=== PATIENT | male | born 1960 | race Caucasian/White ===

== ENCOUNTER → 2016-04-14 | Outpatient (CLI) | payer BC ==
[~2016-04-14] MED LIST: INSUINJ4 SQ; LISI2.5T5 PO
[2016-04-14 10:21] LABS: ESTIMATED AVERAGE GLUCOSE 134 mg/dl; HA1C FLAG Normal (Normal)
[2016-04-14 11:35] LABS: ALT/SGPT 144 U/L (12-78); AST/SGOT 61 U/L (15-37); BLOOD UREA NITROGEN 18 mg/dl (7-18); BUN/CREATININE RATIO 20.1 (10-20); CALCIUM 9.2 mg/dl (8.5-10.1); CARBON DIOXIDE 25 mmol/L (21-32); CHLORIDE 107 mmol/L (98-107); GLUCOSE 147 mg/dl (70-99); POTASSIUM 3.7 mmol/L (3.5-5.1); SODIUM 142 mmol/L (136-145)
[2016-04-14 11:41] LABS: ALB/GLOB RATIO 1.2 (0.9-2); ALKALINE PHOSPHATASE 52 U/L (45-117); CHOLESTEROL 202 mg/dl (0-200); CHOLESTEROL/HDL RATIO 4.1; HDL CHOLESTEROL 49 mg/dl; LDL CHOLESTEROL CALCULATED 111 mg/dl; TRIGLYCERIDES 212 mg/dl (0-150); VERY LOW DENSITY LIPOPROT CALC 42 mg/dl
== END | disposition home or self-care (01) ==
LOC: C.LAB1850 07:50
PROVIDERS: ATTEND Internal Medicine
DX: E11.9 Type 2 diabetes mellitus without complications (principal)

== ENCOUNTER → 2016-09-24 | Outpatient (CLI) | payer BC ==
[2016-09-24 10:06] LABS: ESTIMATED AVERAGE GLUCOSE 166 mg/dl; HA1C FLAG Normal (Normal)
[2016-09-24 10:33] LABS: HEPATITIS B AB NEG
[2016-09-24 10:49] LABS: ALT/SGPT 166 U/L (12-78); AST/SGOT 101 U/L (15-37); BLOOD UREA NITROGEN 16 mg/dl (7-18); CALCIUM 9.2 mg/dl (8.5-10.1); CARBON DIOXIDE 23 mmol/L (21-32); CHLORIDE 106 mmol/L (98-107); CREATININE 0.75 mg/dl (0.60-1.40); GLUCOSE 167 mg/dl (70-99); POTASSIUM 4.2 mmol/L (3.5-5.1); SODIUM 140 mmol/L (136-145)
[2016-09-24 10:54] LABS: ALKALINE PHOSPHATASE 57 U/L (45-117); PROSTATE SPECIFIC ANTIGEN 0.353 ng/ml (0.000-4.000)
[2016-09-24 11:26] LABS: RATIO 7.2 mcg/mg (0-30.0)
== END | disposition home or self-care (01) ==
LOC: C.LAB1850 07:52
PROVIDERS: ATTEND Internal Medicine
DX: R79.89 Other specified abnormal findings of blood chemistry (principal); E11.9 Type 2 diabetes mellitus without complications; Z12.5 Encounter for screening for malignant neoplasm of prostate

== ENCOUNTER → 2016-12-02 | Outpatient (CLI) | payer BC ==
--- NOTE | 2016-12-02 08:43 | DIAGNOSTIC IMAGING REPORT ---
MRI LUMBAR SPINE W/O CONTRAST CLINICAL HISTORY: Gait disturbance. Disc bulge. Low back pain with right leg radiculopathy. TECHNIQUE: Sagittal and axial T1, T2 and STIR images were obtained. COMPARISON STUDY: 10/13/2008 OBSERVATIONS: The vertebral bodies and posterior elements appear intact. There is no abnormal bony signal present to suggest a marrow replacement process. L1-2: No disc protrusions or extrusions. No evidence of spinal canal or neural foraminal compromise. L2-3: No disc protrusions or extrusions. No evidence of spinal canal or neural foraminal compromise. L3-4: No disc protrusions or extrusions. No evidence of spinal canal or neural foraminal compromise. L4-5: There is a minimal circumferential disc bulge. There is no significant spinal or foraminal stenosis. L5-S1: There is a moderate to large right-sided disc extrusion. The disc material extends into the right lateral recess and abuts and displaces the right S1 nerve root. The conus medullaris and cauda equina appear normal. IMPRESSION: Interval development of a moderate to large right-sided disc extrusion at the L5-S1 level. The disc material abuts and displaces the right S1 nerve root. Electronically signed by: Bienvenido Mosher M.D. 12/02/2016 8:41 AM Dictated Date/Time: 12/02/2016 8:38 AM
== END | disposition home or self-care (01) ==
LOC: C.MRI 07:43
PROVIDERS: ATTEND Internal Medicine
DX: M51.26 Other intervertebral disc displacement, lumbar region (principal); M54.41 Lumbago with sciatica, right side; G47.9 Sleep disorder, unspecified; R26.9 Unspecified abnormalities of gait and mobility; R20.0 Anesthesia of skin; R93.7 Abnormal findings on diagnostic imaging of other parts of musculoskeletal system; M51.27 Other intervertebral disc displacement, lumbosacral region

== ENCOUNTER → 2017-06-22 | Outpatient (CLI) | payer BC ==
[~2017-06-22] MED LIST changes: +LISI-1116 PO; -LISI2.5T5 PO
[2017-06-22 10:01] LABS: HEMOGLOBIN A1C 9.7 % (4.5-5.6)
[2017-06-22 10:26] LABS: ALBUMIN 4.1 gm/dl (3.4-5.0); ALT/SGPT 174 U/L (12-78); AST/SGOT 133 U/L (15-37); BLOOD UREA NITROGEN 15 mg/dl (7-18); CALCIUM 9.4 mg/dl (8.5-10.1); CARBON DIOXIDE 23 mmol/L (21-32); CREATININE 0.91 mg/dl (0.60-1.40); GLUCOSE 255 mg/dl (70-99); POTASSIUM 3.9 mmol/L (3.5-5.1); SODIUM 136 mmol/L (136-145)
[2017-06-22 10:29] LABS: ALKALINE PHOSPHATASE 67 U/L (45-117); TOTAL PROTEIN 8.2 gm/dl (6.4-8.2)
== END | disposition home or self-care (01) ==
LOC: C.LAB1850 08:00
PROVIDERS: ATTEND Internal Medicine
DX: R79.89 Other specified abnormal findings of blood chemistry (principal); E11.9 Type 2 diabetes mellitus without complications

== ENCOUNTER 2021-11-06 15:28 | Inpatient (IN) ==
--- NOTE | 2021-11-06 16:12 | XRay Report ---
XR chest 1V portable HISTORY: Atypical Chest Pain COMPARISON: None. FINDINGS: The cardiac silhouette is mildly enlarged. The trachea is midline and patent. No pneumothor ax. No pleural effusions. There is mild diffuse interstitial thickening likely representing pulmonary edema. IMPRESSION: Cardiomegaly with mild interstitial pulmonary edema. ACT 112: Negative or not required by law. Electronically signed by: Kehinde Hernandez M.D. 11/06/2021 4:10 PM
[2021-11-06 16:28] LABS: Basophils # (auto) 0.05 K/uL (0-0.2); Eosinophils # (auto) 0.13 K/uL (0-0.50); Eosinophils % (auto) 2.6 %; Hematocrit (blood only) 34.6 % (40.1-51.0); Hemoglobin 11.6 g/dl (14.0-18.0); Immature Granulocytes # (auto) 0.01 K/uL (0.00-0.02); Immature Granulocytes % (auto) 0.2 %; Lymphocytes # (auto) 1.37 K/uL (1.2-3.4); Lymphocytes % (auto) 27.6 %; Mean Corpuscular Hemoglobin 32.1 pg (25.0-34.0); Mean Corpuscular Hgb Conc 33.5 g/dL (32.0-36.0); Mean Corpuscular Volume 95.8 fL (80.0-100.0); Mean Platelet Volume 10.7 fL (9.4-12.4); Monocytes # (auto) 0.75 K/uL (0.24-0.82); Monocytes % (auto) 15.1 %; Neutrophils # (auto) 2.66 K/uL (1.4-6.5); Neutrophils % (auto) 53.5 %; Platelet Count 138 K/uL (130-400); RDW Coefficient of Variation 14.6 % (11.5-14.5); RDW Standard Deviation 51.7 fL (36.4-46.3); Red Blood Count 3.61 M/uL (4.63-6.08); White Blood Count 4.97 K/ul (4.8-10.8)
[2021-11-06 16:42] LABS: INR 1.2 (0.9-1.1); Partial Thromboplastin Ratio 1.1; Partial Thromboplastin Time 28.9 Seconds (21.0-31.0)
[2021-11-06 16:54] LABS: Troponin I High Sensitivity 25.3 pg/ml (0-20)
--- NOTE | 2021-11-06 16:59 | Emergency Department Note ---
Impression & Plan Acute systolic CHF (congestive heart failure), DM type 2 (diabetes mellitus, type 2), HTN (hypertension) ED Provider Note Provider: Nitin Gonzalez MD DATE OF SERVICE: 11/06/2021 CHIEF COMPLAINT: Heart failure HISTORY OF PRESENT ILLNESS: Patient is a 61-year-old gentleman history of hypertension and diabetes referred today from [facility] cardiology office with new onset heart failure. Dr. Wyman reports that echo today showed a new EF of 20% with cardiomyopathy. Patient has been taking some Lasix. Has significant swelling predominantly abdomen but some in the legs. Worsened over the past 6 months shortness of breath. Cardiology wanted the patient to be admitted for diuresis and further care. Patient denies significant chest pain or falls. Denies nausea or vomiting. REVIEW OF SYSTEMS: A total of 10 review of systems was obtained and negative except as stated above in the HPI. PAST MEDICAL HISTORY: As noted above MEDICATIONS: Reviewed home medication list SOCIAL HISTORY: Smoker PHYSICAL EXAM: GENERAL: alert and oriented in no acute distress on stretcher Head: normocephalic and atraumatic EYES: No injection, discharge or icterus. NECK: Trachea midline. ENT: Mucous membranes pink and moist. LUNGS: Airway patent. No retractions. Breath sounds diminished in the bases HEART: Regular rate and rhythm. No chest wall tenderness ABDOMEN: Soft and non-tender, without guarding or rebound but moderately distended. SKIN: Acyanotic, warm, dry, without rashes EXTREMITIES: Without obvious deformity with 1-2+ lower extremity edema. NEUROLOGICAL: No focal deficits. No aphasia. No facial droop or slurred speech. EK bpm sinus tachycardia. No acute ST segment elevation noted with some lateral ST flattening. QTc 492. CONTINUOUS CARDIAC MONITORING: was ordered and showed a heart rate of 90s-100s bpm in NSR normal sinus rhythm Patient's laboratory studies and imaging reviewed. Differential includes Cardiac ischemia, aortic dissection, pulmonary embolism, pneumothorax, pneumonia, pericarditis, myocarditis, esophageal rupture, GERD, cholecystitis, pancreatitis, musculoskeletal, as well as other pathologies. IMPRESSION/MEDICAL DECISION MAKING: From cardiology office with echo showing reduced EF of 20% cardiomyopathy. Clinically appears fluid overloaded. Has been taking some Lasix every day. Chest x-ray with some mild pulmonary edema. Troponin minimally elevated. Denies chest pain at this time. Peers to again have new onset heart failure ca rdiology can follow work-up. Patient A bit winded with speech but not hypoxic. BNP significantly elevated. Doubt this represents PE or DVT at this time given the bilateral nature of the legs and the echo from earlier today by report of Dr. Lizama from cardiology. Patient agreeable for further care here and given some IV Lasix. DIAGNOSIS: Acute CHF, swelling DISPOSITION: Hospitalist will evaluate Patient was agreeable with this plan. Past Med/Surg History Medical History DM type 2 (diabetes mellitus, type 2) Fatty liver HTN (hypertension) Surgical History History of nasal septoplasty History of tonsillectomy Family History (Updated 11/06/21 @ 19:21 by BHAVANA Guy) Mother Diabetes Father Heart disease Social History (Updated 11/06/21 @ 19:21 by BHAVANA Guy) Smoking Status: Current every day smoker Tobacco Type: Cigarettes Cigarettes Per Day: 4; Second Hand Exposure: No; Do You Dip or Chew Tobacco: No; Tobacco Cessation Education Requested by Patient: Yes Hx Alcohol Use: Yes Alcohol type: wine Alcohol Intake Frequency: 4 or More x per/Week Hx Substance Use: No Preferred Language: French Beliefs That Will Affect Care: None Current Living Situation: Spouse Other Information That Helps Us Care for You: No Feels Safe at Home: Yes Safety Concerns: Feels Safe At This Time Assistive Devices: Glasses Allergies Allergies Allergy/AdvReac Type Severity Reaction Status Date / Time No Known Allergies Allergy Unverified 11/06/21 17:45 Home Meds Home Medications Medication Instructions Recorded Confirmed dulaglutide 0.75 mg/0.5 mL 0.75 mg subcut WK 11/06/21 11/06/21 subcutaneous pen injector (Trulicity) furosemide 20 mg tablet 20 mg PO BID 11/06/21 11/06/21 insulin glargine 100 unit/mL (3 22 units subcut QAM 11/06/21 11/06/21 mL) subcutaneous pen (Basaglar KwikPen U-100 Insulin) lisinopril 20 mg tablet 20 mg PO QAM 11/06/21 11/06/21 metformin 1,000 mg tablet 1,000 mg PO BIDM 11/06/21 11/06/21 multivitamin 1 tab PO DAILY 11/06/21 11/06/21 omega-3 fatty acids 1,000 mg PO DAILY 11/06/21 11/06/21 Results & Data (ED) Vital Signs Vital Signs - 24 hr 11/06/21 15:30 11/06/21 17:53 Temperature 36.8 C Temperature Source Temporal Artery Scan Pulse Rate 119 H Pulse Rate [Apical] 108 H Pulse Rhythm [Apical] Regular Pulse Strength [Apical] Normal Respiratory Rate 16 19 Respiratory Effort / Characteristics Non-Labored Spontaneous Non-Labored Respiratory Depth Normal Normal Respiratory Pattern Regular Regular Blood Pressure 120/83 Blood Pressure [Right Arm] 111/82 Blood Pressure Mean 95 Blood Pressure Mean [Right Arm] 91 Blood Pressure Position [Right Arm] Lying Pulse Oximetry 97 96 Oxygen Delivery Method Room Air Room Air Sepsis Recent Fever Within 48 Hours No Sepsis New/Unexplained Change in Mental Status N/A Sepsis Action Taken by Nursing No Action Required Laboratory Data Result diagrams: 11/06/21 16:14 11/06/21 16:14 Lab Results 11/06/21 11/06/21 11/06/21 Range/Units 16:14 16:14 16:14 WBC 4.97 (4.8-10.8) K/ul RBC 3.61 L (4.63-6.08) M/uL Hgb 11.6 L (14.0-18.0) g/dl Hct 34.6 L (40.1-51.0) % MCV 95.8 (80.0-100.0) fL MCH 32.1 (25.0-34.0) pg MCHC 33.5 (32.0-36.0) g/dL RDW Std Deviation 51.7 H (36.4-46.3) fL RDW Coeff of Carla 14.6 H (11.5-14.5) % Plt Count 138 (130-400) K/uL MPV 10.7 (9.4-12.4) fL Immature Gran % (Auto) 0.2 % Neut % (Auto) 53.5 % Lymph % (Auto) 27.6 % Morehouse % (Auto) 15.1 % Eos % (Auto) 2.6 % Baso % (Auto) 1.0 % Neut # (Auto) 2.66 (1.4-6.5) K/uL Lymph # (Auto) 1.37 (1.2-3.4) K/uL Morehouse # (Auto) 0.75 (0.24-0.82) K/uL Eos # (Auto) 0.13 (0-0.50) K/uL Baso # (Auto) 0.05 (0-0.2) K/uL Immature Gran # (Auto) 0.01 (0.00-0.02) K/uL PT 13.0 H (9.0-12.0) Seconds INR 1.2 H (0.9-1.1) APTT 28.9 (21.0-31.0) Seconds PTT Ratio 1.1 Sodium 135 L (136-145) mmol/L Potassium 3.4 L (3.5-5.1) mmol/L Chloride 100 (98-107) mmol/L Carbon Dioxide 24 (21-32) mmol/L Anion Gap 11 (3-11) BUN 28 H (6-23) mg/dl Creatinine 0.90 (0.6-1.4) mg/dl Est Cr Clr Drug Dosing 106.4 ml/min Est GFR ( Amer) 107.2 ml/min Est GFR (Non-Af Amer) 92.5 ml/min BUN/Creatinine Ratio 31.1 H (10-20) Glucose 83 (70-99(Fasting)) mg/dl POC Glucose (70-99) mg/dl Calcium 9.4 (8.5-10.1) mg/dl Magnesium 2.2 (1.7-2.4) mg/dl Total Bilirubin 1.7 H (0.2-1.0) mg/dl AST 49 H (13-39) U/L ALT 27 (7-52) U/L Alkaline Phosphatase 80 (34-104) U/L Troponin I High Sens 25.3 H (0-20) pg/ml B-Natriuretic Peptide (0-100) pg/ml Total Protein 7.5 (6.0-8.3) gm/dl Albumin 4.1 (3.4-5.0) gm/dl Globulin 3.4 (2.5-4.0) gm/dl Albumin/Globulin Ratio 1.2 (0.9-2) SARS-CoV-2, RNA, NAAT (NEGATIVE) 11/06/21 11/06/21 11/06/21 Range/Units 16:14 16:14 16:16 WBC (4.8-10.8) K/ul RBC (4.63-6.08) M/uL Hgb (14.0-18.0) g/dl Hct (40.1-51.0) % MCV (80.0-100.0) fL MCH (25.0-34.0) pg MCHC (32.0-36.0) g/dL RDW Std Deviation (36.4-46.3) fL RDW Coeff of Carla (11.5-14.5) % Plt Count (130-400) K/uL MPV (9.4-12.4) fL Immature Gran % (Auto) % Neut % (Auto) % Lymph % (Auto) % Morehouse % (Auto) % Eos % (Auto) % Baso % (Auto) % Neut # (Auto) (1.4-6.5) K/uL Lymph # (Auto) (1.2-3.4) K/uL Morehouse # (Auto) (0.24-0.82) K/uL Eos # (Auto) (0-0.50) K/uL Baso # (Auto) (0-0.2) K/uL Immature Gran # (Auto) (0.00-0.02) K/uL PT (9.0-12.0) Seconds INR (0.9-1.1) APTT (21.0-31.0) Seconds PTT Ratio Sodium (136-145) mmol/L Potassium (3.5-5.1) mmol/L Chloride (98-107) mmol/L Carbon Dioxide (21-32) mmol/L Anion Gap (3-11) BUN (6-23) mg/dl Creatinine (0.6-1.4) mg/dl Est Cr Clr Drug Dosing ml/min Est GFR ( Amer) ml/min Est GFR (Non-Af Amer) ml/min BUN/Creatinine Ratio (10-20) Glucose (70-99(Fasting)) mg/dl POC Glucose (70-99) mg/dl Calcium (8.5-10.1) mg/dl Magnesium Cancelled (1.7-2.4) mg/dl Total Bilirubin (0.2-1.0) mg/dl AST (13-39) U/L ALT (7-52) U/L Alkaline Phosphatase (34-104) U/L Troponin I High Sens (0-20) pg/ml B-Natriuretic Peptide 1155 H (0-100) pg/ml Total Protein (6.0-8.3) gm/dl Albumin (3.4-5.0) gm/dl Globulin (2.5-4.0) gm/dl Albumin/Globulin Ratio (0.9-2) SARS-CoV-2, RNA, NAAT NEGATIVE (NEGATIVE) 11/06/21 Range/Units 17:08 WBC (4.8-10.8) K/ul RBC (4.63-6.08) M/uL Hgb (14.0-18.0) g/dl Hct (40.1-51.0) % MCV (80.0-100.0) fL MCH (25.0-34.0) pg MCHC (32.0-36.0) g/dL RDW Std Deviation (36.4-46.3) fL RDW Coeff of Carla (11.5-14.5) % Plt Count (130-400) K/uL MPV (9.4-12.4) fL Immature Gran % (Auto) % Neut % (Auto) % Lymph % (Auto) % Morehouse % (Auto) % Eos % (Auto) % Baso % (Auto) % Neut # (Auto) (1.4-6.5) K/uL Lymph # (Auto) (1.2-3.4) K/uL Morehouse # (Auto) (0.24-0.82) K/uL Eos # (Auto) (0-0.50) K/uL Baso # (Auto) (0-0.2) K/uL Immature Gran # (Auto) (0.00-0.02) K/uL PT (9.0-12.0) Seconds INR (0.9-1.1) APTT (21.0-31.0) Seconds PTT Ratio Sodium (136-145) mmol/L Potassium (3.5-5.1) mmol/L Chloride (98-107) mmol/L Carbon Dioxide (21-32) mmol/L Anion Gap (3-11) BUN (6-23) mg/dl Creatinine (0.6-1.4) mg/dl Est Cr Clr Drug Dosing ml/min Est GFR ( Amer) ml/min Est GFR (Non-Af Amer) ml/min BUN/Creatinine Ratio (10-20) Glucose (70-99(Fasting)) mg/dl POC Glucose 92 (70-99) mg/dl Calcium (8.5-10.1) mg/dl Magnesium (1.7-2.4) mg/dl Total Bilirubin (0.2-1.0) mg/dl AST (13-39) U/L ALT (7-52) U/L Alkaline Phosphatase (34-104) U/L Troponin I High Sens (0-20) pg/ml B-Natriuretic Peptide (0-100) pg/ml Total Protein (6.0-8.3) gm/dl Albumin (3.4-5.0) gm/dl Globulin (2.5-4.0) gm/dl Albumin/Globulin Ratio (0.9-2) SARS-CoV-2, RNA, NAAT (NEGATIVE) Administered Medications Discontinued Medications Furosemide (Furosemide 40 Mg/4 Ml Vial) 40 mg IV ONE ONE Stop: 11/06/21 17:26 Last Admin: 11/06/21 17:55 Dose: 40 mg Documented By: [facility] Imaging Data Radiologist's Impression: Chest X-Ray 11/06/21 15:33 XR chest 1V portable HISTORY: Atypical Chest Pain COMPARISON: None. FINDINGS: The cardiac silhouette is mildly enlarged. The trachea is midline and patent. No pneumothorax. No pleural effusions. There is mild diffuse interstitial thickening likely representing pulmonary edema. IMPRESSION: Cardiomegaly with mild interstitial pulmonary edema. ACT 112: Negative or not required by law. Electronically signed by: Kehinde Hernandez M.D. 11/06/2021 4:10 PM Discharge Plan Visit Data Chief Complaint: Abnormal Labs/Diagnostic Testing Stated Complaint: FLUID BUILD UP, ABNORMAL EKG ED Provider: Nitin Gonzalez Discharge Problem: Acute systolic CHF (congestive heart failure), DM type 2 (diabetes mellitus, type 2), HTN (hypertension) Patient Disposition: Admitted As Inpatient Discharge Instructions Interventions: ED Discharge Assessment Last Done: 11/06/21 20:00
[2021-11-06 17:10] LABS: Albumin Globulin Ratio 1.2 (0.9-2); Albumin Level 4.1 gm/dl (3.4-5.0); BUN Creatinine Ratio 31.1 (10-20); Bilirubin,Total 1.7 mg/dl (0.2-1.0); Calcium 9.4 mg/dl (8.5-10.1); Creatinine Clr Calc Pharmacy 106.4 ml/min; Est GFR (African American) 107.2 ml/min; Est GFR (Non-African American) 92.5 ml/min; Globulin 3.4 gm/dl (2.5-4.0); Magnesium 2.2 mg/dl (1.7-2.4); Potassium 3.4 mmol/L (3.5-5.1); Total Protein 7.5 gm/dl (6.0-8.3)
[2021-11-06] MEDS ORDERED: FUROSEMIDE 40 MG/4 ML VIAL IV ONE (17:25)
[2021-11-06] MEDS ORDERED: POTASSIUM CHLORIDE CRTAB 20 MEQ TABCR PO STA (19:10)
--- NOTE | 2021-11-06 19:10 | History & Physical Report ---
Date of Service November 06, 2021 Assessment & Plan (1) Acute systolic CHF (congestive heart failure): Plan: Admit to telemetry Patient presenting by referral of cardiology clinic after grossly abnormal outpatient echocardiogram. Patient reports progressively worsening lower extremity edema, abdominal distention, shortness of breath x 6 months Echo showed severe dilation of all 4 cardiac chambers, EF <20%, severe aortic stenosis vs pseudo aortic stenosis due to severe left ventricular systolic dysfunction, severe mitral regurgitation due to dilated cardiomyopathy Patient currently hemodynamically stable, saturating well on room air S/p Lasix 40 mg IV in the ED --continue Lasix 40 mg IV daily Strict I's and O's, daily weights, low Na+ diet N.p.o. after midnight for possible further testing Further recommendations as per cardiology (2) HTN (hypertension): Plan: BP controlled, continue lisinopril for now (3) DM type 2 (diabetes mellitus, type 2): Plan: Hgb A1c 6.7 06/2021 On metformin, Trulicity, glargine Glucose 83 on labs, NovoLog only for now (4) DVT prophylaxis: Plan: SQ Heparin History of Present Illness Chief Complaint: Referred by cardiology Primary Care Provider: [facility] 61-year-old male with PMH DM type II, HTN, tobacco abuse, fatty liver, and other problems listed below who presents the ED by referral of cardiology for evaluation after abnormal outpatient echocardiogram. Patient reports progressive worsening lower extremity edema and abdominal distention over the past 6 months. Patient was started on Lasix 20 mg twice daily and referred to cardiology. Patient had outpatient echo today that showed severe dilation of all 4 cardiac chambers, EF <20%, severe aortic stenosis vs pseudo aortic stenosis due to severe left ventricular systolic dysfunction, severe mitral regurgitation due to dilated cardiomyopathy. Patient reports shortness of breath with minimal exertion and orthopnea. Denies chest pain and palpitations. No lightheadedness, dizziness, diaphoresis, syncopal events. Denies any other recent illnesses cough, fevers, chills. Reports some occasional constipation but denies abdominal pain, nausea, vomiting, diarrhea. No urinary symptoms. In the ED, patient is hemodynamically stable. Labs show K+ 3.4, T bili 1.7, AST 49, HS troponin 25.3, proBNP 1100. CXR shows cardiomegaly with mild pulmonary edema. Patient was given Lasix 40 mg IV. Allergies Allergy/AdvReac Type Severity Reaction Status Date / Time No Known Allergies Allergy Unverified 11/06/21 17:45 Home Medications Medication Instructions Recorded Confirmed Type dulaglutide 0.75 mg/0.5 mL 0.75 mg subcut WK 11/06/21 11/06/21 History subcutaneous pen injector (Trulicity) furosemide 20 mg tablet 20 mg PO BID 11/06/21 11/06/21 History insulin glargine 100 unit/mL (3 22 units subcut QAM 11/06/21 11/06/21 History mL) subcutaneous pen (Basaglar KwikPen U-100 Insulin) lisinopril 20 mg tablet 20 mg PO QAM 11/06/21 11/06/21 History metformin 1,000 mg tablet 1,000 mg PO BIDM 11/06/21 11/06/21 History multivitamin 1 tab PO DAILY 11/06/21 11/06/21 History omega-3 fatty acids 1,000 mg PO DAILY 11/06/21 11/06/21 History Past Med/Surg History Medical History DM type 2 (diabetes mellitus, type 2) Fatty liver HTN (hypertension) Surgical History History of nasal septoplasty History of tonsillectomy Family History (Updated 11/06/21 @ 19:21 by BHAVANA Guy) Mother Diabetes Father Heart disease Social History (Updated 11/06/21 @ 19:21 by BHAVANA Guy) Smoking Status: Current every day smoker Tobacco Type: Cigarettes Cigarettes Per Day: 4; Second Hand Exposure: No; Do You Dip or Chew Tobacco: No; Tobacco Cessation Education Requested by Patient: Yes Hx Alcohol Use: Yes Alcohol type: wine Alcohol Intake Frequency: 4 or More x per/Week Hx Substance Use: No Preferred Language: Armenian Beliefs That Will Affect Care: None Current Living Situation: Spouse Other Information That Helps Us Care for You: No Feels Safe at Home: Yes Safety Concerns: Feels Safe At This Time Assistive Devices: Glasses Review of Systems Review of Systems: ROS per HPI, all other systems reviewed and negative Physical Exam Constitutional: WD/WN, vitals as above Eyes: PERRL, conjunctivae normal, anicteric sclerae ENMT: external ear and nose normal, oropharynx normal Respiratory: normal respiratory effort, lungs clear to auscultation Cardiovascular: Rate/Rhythm: regular rate and regular rhythm Heart Sounds: + murmur (Grade 3/6, systolic) Vessels: normal peripheral pulses Extremities: + edema (+3 pitting edema BLE extending up to the thighs) Gastrointestinal (Abdomen): Inspection/Auscultation: + abdomen distended (Semifirm) and normal bowel sounds Percussion/Palpation: abdomen nontender and no hepatosplenomegaly Musculoskeletal: no cyanosis or clubbing, extremities motor strength 5/5 Skin: no rashes, warm and dry Neurologic: PERRL, EOMI, accommodation nl, no face palsy, no dysarthria Psychiatric: A+Ox3, euthymic affect Results & Data Results & Data ([facility]) Vital Signs (Past 12 Hours) Vital Signs Temp Pulse Pulse Resp BP BP Pulse Ox 11/06/21 17:53 108 H 19 111/82 96 11/06/21 15:30 36.8 C 119 H 16 120/83 97 O2 Del Method 11/06/21 17:53 Room Air 11/06/21 15:30 Room Air Laboratory Results Short CBC 11/06/21 Range/Units 16:14 WBC 4.97 (4.8-10.8) K/ul Hgb 11.6 L (14.0-18.0) g/dl Hct 34.6 L (40.1-51.0) % Plt Count 138 (130-400) K/uL BMP 11/06/21 16:14 Sodium 135 L Potassium 3.4 L Chloride 100 Carbon Dioxide 24 BUN 28 H Creatinine 0.90 Glucose 83 Calcium 9.4 Liver Function 11/06/21 Range/Units 16:14 Total Bilirubin 1.7 H (0.2-1.0) mg/dl AST 49 H (13-39) U/L ALT 27 (7-52) U/L Alkaline Phosphatase 80 (34-104) U/L Albumin 4.1 (3.4-5.0) gm/dl Diagnostic Findings Chest X-Ray 11/06/21 15:33 XR chest 1V portable HISTORY: Atypical Chest Pain COMPARISON: None. FINDINGS: The cardiac silhouette is mildly enlarged. The trachea is midline and patent. No pneumothorax. No pleural effusions. There is mild diffuse interstitial thickening likely representing pulmonary edema. IMPRESSION: Cardiomegaly with mild interstitial pulmonary edema. ACT 112: Negative or not required by law. Electronically signed by: Kehinde Hernandez M.D. 11/06/2021 4:10 PM Code Status & VTE Plan Code Status Patient is a full code as per my discussion with him. VTE Prophylaxis Plan VTE Prophylaxis will be ordered: Yes Supervising Physician Co-Signing Physician Notes 61 yo M w/ PMH of alc abuse hx (6 drinks every 2 d; now occasional use since last 3 years), T2DM, Snoring/daytime somnolence, HTN, Fatty liver, Lumbar disc herniation presented to our ED at referral of cardiology office for newly diagnosed HF w/ EF of 20% and cardiomyopathy eval. Pt reports ongoing SOB since last 6 months and was put on Lasix, his SOB has been progressive a/w BLE swelling and some dry cough. Pt denies chest pain w/ exertion. Pt reports cardiac history in multiple family members, report 10 out of 11 uncles had some form of heart disease, and father had TX in 60s, 6-7 uncles w/ TX (not sure of age). CXR w/ cardiomegaly and pulm congestion. Labs reviewed, will replete and monitor electrolytes as able. BNP elevated, some liver enzymes elevation noted which appears to be chronic. Trops minimally elevated, pt w/ no chest pain. 11/06/21 outpatient ECHO: severe dilatation of all cardiac chambers, EF <20%. Cardiology consult. Will need GDMT and close f/u w/ cardio. Labs in AM. Upon Exam On RA, b/b cr, 2-3+ BLE edema, Systolic murmur @ P>A area, Abd-distended, nontender. Rest exam as above I have seen and examined the patient and have discussed the case with the provider above. I agree with the assessment and plan as stated.
[2021-11-06] MEDS ORDERED: ACETAMINOPHEN 325 MG TAB PO PRN (19:49)
[2021-11-06] MEDS ORDERED: DEXTROSE 50% 50 ML SYRINGE IV PRN (19:49)
[2021-11-06] MEDS ORDERED: GLUCAGON FOR INJ 1 MG VIAL SQ PRN (19:49)
[2021-11-06] MEDS ORDERED: GLUCOSE 10 TAB/TUBE PO PRN (19:49)
[2021-11-06] MEDS ORDERED: CARBOHYDRATES FOR HYPOGLYCEMIA PO PRN (19:49)
[2021-11-06] MEDS ORDERED: GLUCOSE 40% GEL 15 GM TUBE PO PRN (19:49)
[2021-11-06] MEDS: INSULIN ASPART PER UNIT SC SCH (21:09)
[2021-11-06] MEDS: HEPARIN SOD 5,000 UNIT/0.5 ML VIAL SQ SCH (21:09)
[2021-11-07] MEDS ORDERED: IPRATROPIUM BROMIDE NEB SOLN 0.02% 2.5 ML VIAL INH STA (01:40)
[2021-11-07] MEDS ORDERED: XOPENEX/ATROVENT 1.25mg/0.5MG NEB COMBO NEB STA (01:40)
[2021-11-07] MEDS ORDERED: LEVALBUTEROL 1.25MG/0.5ML NEB INH STA (01:40)
[2021-11-07] MEDS ORDERED: POTASSIUM CHLORIDE CRTAB 20 MEQ TABCR PO STA (01:44)
[2021-11-07] MEDS ORDERED: ALBUMIN 25% 12.5 GM/50 ML VIAL IV STA (01:53)
[2021-11-07] MEDS ORDERED: FUROSEMIDE INJ 20 MG/2 ML VIAL IV STA (01:53)
[2021-11-07] MEDS: HEPARIN SOD 5,000 UNIT/0.5 ML VIAL SQ SCH ×3 (06:15→21:55)
[2021-11-07 06:35] LABS: Hematocrit (blood only) 32.7 % (40.1-51.0); Hemoglobin 10.9 g/dl (14.0-18.0); Mean Platelet Volume 10.6 fL (9.4-12.4); Platelet Count 124 K/uL (130-400); White Blood Count 4.36 K/ul (4.8-10.8)
[2021-11-07 06:53] LABS: Estimated Average Glucose 137 mg/dl; Hemoglobin A1C 6.4 % (4.5-5.6)
[2021-11-07 07:03] LABS: Mean Corpuscular Hemoglobin 32.2 pg (25.0-34.0); Mean Corpuscular Hgb Conc 33.3 g/dL (32.0-36.0); Mean Corpuscular Volume 96.7 fL (80.0-100.0); RDW Coefficient of Variation 14.9 % (11.5-14.5); RDW Standard Deviation 53.1 fL (36.4-46.3); Red Blood Count 3.38 M/uL (4.63-6.08)
[2021-11-07 07:09] LABS: BUN Creatinine Ratio 31.3 (10-20); Calcium 9.2 mg/dl (8.5-10.1); Creatinine Clr Calc Pharmacy 99.6 ml/min; Est GFR (African American) 99.2 ml/min; Est GFR (Non-African American) 85.6 ml/min; Potassium 3.8 mmol/L (3.5-5.1)
--- NOTE | 2021-11-07 08:33 | Cardiology Consultation ---
Date of Consultation November 07, 2021 Assessment & Plan (1) Dilated cardiomyopathy: (2) Biventricular failure: (3) Mitral regurgitation: (4) Aortic stenosis: (5) DM type 2 (diabetes mellitus, type 2): (6) HTN (hypertension): (7) Acute systolic CHF (congestive heart failure): (8) Restrictive cardiomyopathy: Plan 61-year-old male presents with greater than 6 months of progressive edema, dyspnea on exertion and orthopnea. Echocardiogram performed yesterday at [facility] shows severe dilated cardiomyopathy with EF less than 20% along with likely secondary mitral regurgitation, possible severe aortic stenosis, moderate tricuspid regurgitation, pulmonary hypertension and severe biatrial enlargement He is significantly volume overloaded on exam including significant abdominal distention, lower extremity pitting edema above the knee. JVD above the mandible and hepatojugular reflux We will aggressively diurese with Bumex 1 mg IV twice daily and may increase to 3 times daily will benefit from aldosterone antagonism with spironolactone as well but will hold for now and follow hemodynamic and electrolyte response to other medications Evidence-based beta-dunia will be started with metoprolol succinate 25 mg p.o. every morning and uptitrated Will need to be started on Entresto prior to discharge We will change lisinopril to losartan given the greater benefit in LV systolic heart failure Follow and replete electrolytes very closely STRICT I/O's AND DAILY WEIGHTS ON SAME STANDING SCALE will need cardiac catheterization to evaluate for possible obstructive CAD will also allow to evaluate aortic valve gradients and right sided pressures unable to perform at this time due to significant orthopnea, likely schedule for Saturday 11/11 to determine possible underlying etiologies of NICM will need to check: lyme HIV (pt agreeable to testing) fat pad biopsy (amyloidosis) outpatient cardiac MRI (specifically evaluating for granulomatous disease given family heritage of [place] descent) outpatient genetic testing I had a lengthy discussion with the patient in regards to the above. He states he understands and is accepting of continued inpatient hospitalization along with above testing and treatment plan. History of Present Illness Reason for Consultation: Acute decompensated biventricular systolic failure Requesting Physician: [facility] hospitalist group Attending Physician: Jd Duval MD History of Present Illness It was my pleasure to see Mr. Whiteside in cardiac consultation today November 07, 2021. He is a very pleasant 61-year-old gentleman who was sent from our cardiology clinic to the ER on 11/06/2021 after initial consultation and echocardiogram with significant abnormalities. Clinically, he states he has not been feeling well for at least the last 6 months. His main complaint is that of abdominal distention which causes him a great deal of discomfort and he believes also affects his breathing. He has had progressive shortness of breath and lower extremity edema as well. He does not have medical insurance and therefore does not follow with a physician on a regular basis. He has been receiving care through [facility] where initial attempts of diuresis were initially beneficial, however, he states that his edema and volume overload has continued to worsen. He denies any chest pain, palpitations, lightheadedness, dizziness or syncope. Upon further questioning, he denies any tick bites or noxious chemical exposures. He does drink occasional alcohol consisting of 2 or 3 glasses of wine 3 days a week with previous heavier use which he significantly curtailed 3 years ago. He does not have a cat nor dario he visited [facility] or [facility] No significant family history of premature coronary disease or sudden cardiac . His family is of [place] descent. He denies ever being told that any family members were diagnosed with sarcoidosis or amyloidosis to his knowledge He did have a negative HIV screen several years ago but no testing recently He lives at home with his significant other and is the primary caregiver with his partner suffering from severe debilitating arthritis He works in [employer] but was laid off last week. Denies chemical exposures at work. He does recreational gardening in his own yard without any significant exposure to pesticides Allergies Allergy/AdvReac Type Severity Reaction Status Date / Time No Known Allergies Allergy Unverified 11/06/21 17:45 Home Medications Medication Instructions Recorded Confirmed Type dulaglutide 0.75 mg/0.5 mL 0.75 mg subcut WK 11/06/21 11/06/21 History subcutaneous pen injector (Trulicity) furosemide 20 mg tablet 20 mg PO BID 11/06/21 11/06/21 History insulin glargine 100 unit/mL (3 22 units subcut QAM 11/06/21 11/06/21 History mL) subcutaneous pen (Basaglar KwikPen U-100 Insulin) lisinopril 20 mg tablet 20 mg PO QAM 11/06/21 11/06/21 History metformin 1,000 mg tablet 1,000 mg PO BIDM 11/06/21 11/06/21 History multivitamin 1 tab PO DAILY 11/06/21 11/06/21 History omega-3 fatty acids 1,000 mg PO DAILY 11/06/21 11/06/21 History Patient History Medical History DM type 2 (diabetes mellitus, type 2) Fatty liver HTN (hypertension) Surgical History History of nasal septoplasty History of tonsillectomy Family History Mother Diabetes Father Heart disease Social History Smoking Status: Current every day smoker Tobacco Type: Cigarettes Cigarettes Per Day: 4; Second Hand Exposure: No; Do You Dip or Chew Tobacco: No; Tobacco Cessation Education Requested by Patient: Yes Hx Alcohol Use: Yes Alcohol type: wine Alcohol Intake Frequency: 4 or More x per/Week Hx Substance Use: No Preferred Language: Hungarian Beliefs That Will Affect Care: None Current Living Situation: Spouse Other Information That Helps Us Care for You: No Feels Safe at Home: Yes Safety Concerns: Feels Safe At This Time Assistive Devices: Glasses Review of Systems Review of Systems: All systems reviewed & are unremarkable except as noted in HPI & below Physical Exam Physical Exam: General: Awake, alert and oriented x 3. Mild conversational dyspnea HEENT: Normocephalic, atraumatic. Pupils equal, round and reactive to light and accommodation. Extraocular muscles are intact. Anicteric sclera. Moist mucous membranes. Neck: JVD to the mandible. No bruit. Positive fluid wave with HJR Cardiovascular: Regular. Positive S-4. Normal S-1 and S-2. Possible S-3. 3/6 holosystolic ejection murmur, left sternal border, mid-clavicular line with radiation to the axilla. No rubs. Pulmonary: Poor air movement in the bilateral bases with rales. no rhonchi or wheezing Abdomen: Protuberant and significantly distended abdomen. Mild tenderness to palpation. Extremities: No clubbing, cyanosis. +2 B/L pitting edema to above the knee. +1 pedal pulses bilaterally. Skin: Warm and dry. Results & Data ([facility]) Vital Signs (Past 12 Hours) Vital Signs Temp Pulse Pulse Resp BP BP Pulse Ox 11/07/21 07:54 104/72 11/07/21 07:13 36.8 C 93 H 18 105/69 96 11/07/21 01:30 82 L 11/07/21 03:31 36.9 C 101 H 18 97/68 L 98 11/07/21 02:00 102 H 18 96 11/07/21 01:22 109 H 11/06/21 22:56 36.9 C 104 H 18 93/70 L 96 11/06/21 21:17 O2 Del Method O2 Flow Rate 11/07/21 07:54 11/07/21 07:13 Room Air 11/07/21 01:30 Room Air 11/07/21 03:31 Nasal Cannula 2 11/07/21 02:00 Nasal Cannula 2 11/07/21 01:22 11/06/21 22:56 Room Air 11/06/21 21:17 Room Air Diagnostic Findings 2D echo from 11/06/21 Severe dilatation is present of all 4 cardiac chambers. The qualitative LV ejection fraction is <20% (severely reduced). Refer to details below with regards to tricuspid regurgitation, mitral regurgitation, and severe aortic stenosis versus pseudo aortic stenosis related to severe left ventricular systolic dysfunction. No prior studies are available for direct comparison. Left Ventricle The qualitative LV ejection fraction is <20% (severely reduced). The left ventricular cavity size is severely enlarged. Diffuse myocardial thinning is present. There is no left ventricular mural thrombus. Left Ventricular Wall Motion There is severe diffuse left ventricular hypokinesis. Right Ventricle The right ventricular cavity is severely dilated with severe diffuse right ventricular hypokinesis. Atria The left atrium is severely enlarged (>48 ml/m^2,). The left atrial volume index : "58" ml/m2 The right atrium is severely enlarged. Diastolic Function The left ventricular diastolic function is severely abnormal (grade III). The left ventricular diastolic fillling pressure is elevated. Aortic Valve The aortic valve has three leaflets. The aortic valve is moderately calcified. Severe aortic stenosis, or likely pseudo aortic stenosis due to severe left ventricular systolic dysfunction is present. There is no significant aortic regurgitation. Mitral Valve The mitral valve anatomy is normal. Mitral stenosis is absent. Severe mitral regurgitation is present, with a central and posteriorly directed jet. The mitral regurgitation is due to dilated cardiomyopathy. Tricuspid Valve The tricuspid valve anatomy is normal. Tricuspid stenosis is absent. Moderate tricuspid regurgitation is present. Hemodynamics Dilated IVC with reduced collapsability with sniff indicates an elevated right atrial pressure of 15mmHg. Moderate pulmonary hypertension is present. The estimated pulmonary artery systolic pressure is 50mm Hg. Additional Findings A moderate left plerual effusion is present. Ascites is present. 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
[2021-11-07] MEDS: INSULIN ASPART PER UNIT SC SCH ×4 (08:57→21:42)
[2021-11-07] MEDS ORDERED: FUROSEMIDE 40 MG/4 ML VIAL IV SCH (09:00)
[2021-11-07] MEDS ORDERED: lisinopril 20 MG TAB PO SCH (09:00)
[2021-11-07] MEDS: METOPROLOL SUCC 25MG EXT REL TAB PO SCH (10:24)
--- NOTE | 2021-11-07 14:48 | Hospitalist Progress Note ---
Date of Service November 07, 2021 Assessment & Plan (1) Acute systolic CHF (congestive heart failure): Plan 61 yo M w/ PMH of alc abuse hx (6 drinks every 2 d; now occasional use since last 3 years), T2DM, Snoring/daytime somnolence, HTN, Fatty liver, Lumbar disc herniation presented to our ED at referral of cardiology office for newly diagnosed HF w/ EF of 20% and cardiomyopathy eval. is being managed for the following: Acute systolic CHF Patient sent to ED 11/06 for evaluation [see above]. Patient reports ongoing shortness of breath since last 6 months with progressive BLE swelling and some dry cough likely related to pulmonary edema. Patient denies chest pain with exertion. Patient does have cardiac history and multiple family members [see H&P] Admitting CXR with cardiomegaly and pulmonary congestion, admitting BNP elevated. Tropes minimally elevated at presentation and patient with no chest pain. Admitting EKG with no acute ST or T changes. 11/06/2021 outpatient echo: Severe dilatation of all cardiac chambers, EF less than 20%. Continue telemetry, monitor and replete electrolytes as appropriate. Cardiology on board: Being diuresed, being optimized for GDMT. Outpatient cardiac MRI [to evaluate for granulomatous disease], fat pad biopsy likely OP, outpatient genetic testing, Lyme and HIV test. Entresto prior to discharge, prior Auth will be needed. Cardiac cath likely on Thursday for possible obstructive CAD evaluation. Strict I's and O's, daily weights. Other chronic medical conditions: HTN, DM type II --> continue/resume home meds as and when able. A1c 6.4. DVT prophylaxis: SQ heparin Full code Admission and Anticipated Discharge Date Admission Date: November 06, 2021 Subjective Patient seen and examined at bedside for follow-up of acute systolic heart failure. Patient was sitting up in bed, on room air, NAD, denies new acute events overnight, denies headache/dizziness/chest pain/palpitations/belly pain/sore throat/cough/fever/chills/other review of symptoms. Patient reports feeling better with improving BLE swelling. Physical Exam Physical Exam: GENERAL: Alert and oriented x3. NAD, on RA. HEENT: No pallor, no icterus. Pupils equal, round and reactive to light. Oral mucosa moist. NECK: No JVD, no neck masses. HEART: S1 and S2 heard. Regular rate and rhythm. Systolic murmur at Pulmonic greater than aortic area, no gallop. RESPIRATORY SYSTEM: Normal AP diameter. No accessory muscle use. No wheezing, ? b/b crackles. ABDOMEN: Soft, bowel sounds present, nontender, + distention (approx baseline per Pt). CENTRAL NERVOUS SYSTEM: No facial droop. Speech is clear. Obeys simple commands. Moves extremities. EXTREMITIES: 2+ BLE edema, 1+ b/l thigh edema, no erythema seen. Results & Data Results & Data ([facility]) Vital Signs (Past 12 Hours) Vital Signs Temp Pulse Pulse Resp BP BP Pulse Ox 11/07/21 11:15 36.8 C 92 H 18 104/72 96 11/07/21 10:23 96 H 110/70 11/07/21 09:40 94 H 11/07/21 09:31 11/07/21 07:54 104/72 11/07/21 07:13 36.8 C 93 H 18 105/69 96 11/07/21 03:31 36.9 C 101 H 18 97/68 L 98 O2 Del Method O2 Flow Rate 11/07/21 11:15 Room Air 11/07/21 10:23 11/07/21 09:40 11/07/21 09:31 Room Air 11/07/21 07:54 11/07/21 07:13 Room Air 11/07/21 03:31 Nasal Cannula 2
[2021-11-07 15:38] LABS: BUN Creatinine Ratio 28.2 (10-20); Calcium 9.2 mg/dl (8.5-10.1); Creatinine Clr Calc Pharmacy 86.9 ml/min; Est GFR (African American) 84.1 ml/min; Est GFR (Non-African American) 72.6 ml/min; Potassium 3.6 mmol/L (3.5-5.1)
[2021-11-07 15:45] LABS: Lyme Ab IgG w/WB Rflx Negative (Negative)
[2021-11-07 15:54] LABS: Lyme Ab IgM w/WB Rflx Equivocal (Negative)
--- NOTE | 2021-11-07 16:49 | Electrocardiogram Report ---
Test Reason : Blood Pressure : / mmHG Vent. Rate : 109 BPM Atrial Rate : 109 BPM P-R Int : 172 ms QRS Dur : 100 ms QT Int : 366 ms P-R-T Axes : 049 -25 028 degrees QTc Int : 492 ms Sinus tachycardia Low voltage QRS Possible Old Septal infarct Abnormal ECG When compared with ECG of 01-SEP-2012 11:02, QRS axis Shifted left Borderline Criteria for Septal infarct is now Present QT has lengthened Confirmed by Brandon Desouza ([id number]) on 11/07/2021 4:49:02 PM Referred By: [facility] Confirmed By:Brandon Desouza
[2021-11-07] MEDS: POTASSIUM CHLORIDE CRTAB 20 MEQ TABCR PO SCH (18:13)
[2021-11-07] MEDS: BUMETANIDE 1 MG in SYRINGE 0 ML IV SCH (18:47)
[2021-11-07] MEDS ORDERED: XOPENEX/ATROVENT 1.25mg/0.5MG NEB COMBO NEB PRN (20:37)
[2021-11-07] MEDS ORDERED: IPRATROPIUM BROMIDE NEB SOLN 0.02% 2.5 ML VIAL INH PRN (20:45)
[2021-11-07] MEDS ORDERED: LEVALBUTEROL 1.25MG/0.5ML NEB INH PRN (20:45)
[2021-11-08] MEDS: HEPARIN SOD 5,000 UNIT/0.5 ML VIAL SQ SCH ×3 (05:04→21:20)
[2021-11-08 07:55] LABS: BUN Creatinine Ratio 30.5 (10-20); Calcium 9.2 mg/dl (8.5-10.1); Creatinine Clr Calc Pharmacy 67.7 ml/min; Est GFR (African American) 62.3 ml/min; Est GFR (Non-African American) 53.8 ml/min; Magnesium 2.2 mg/dl (1.7-2.4)
[2021-11-08] MEDS: INSULIN ASPART PER UNIT SC SCH ×4 (08:18→20:46)
[2021-11-08] MEDS: POTASSIUM CHLORIDE CRTAB 20 MEQ TABCR PO SCH ×2 (08:48→18:39)
--- NOTE | 2021-11-08 09:23 | Cardiology Progress Note ---
Date of Service November 08, 2021 Assessment & Plan (1) Dilated cardiomyopathy: (2) Biventricular failure: (3) Mitral regurgitation: (4) Aortic stenosis: (5) DM type 2 (diabetes mellitus, type 2): (6) HTN (hypertension): (7) Acute systolic CHF (congestive heart failure): (8) Restrictive cardiomyopathy: Plan 61-year-old male presents with greater than 6 months of progressive edema, dyspnea on exertion and orthopnea. Echocardiogram performed yesterday at [facility] shows severe dilated cardiomyopathy with EF less than 20% along with likely secondary mitral regurgitation, possible severe aortic stenosis, moderate tricuspid regurgitation, pulmonary hypertension and severe biatrial enlargement He is significantly volume overloaded on exam including significant abdominal distention, lower extremity pitting edema above the knee. JVD above the mandible and hepatojugular reflux We will aggressively diurese with Bumex 1 mg IV twice daily and may increase to 3 times daily will benefit from aldosterone antagonism with spironolactone as well but will hold for now and follow hemodynamic and electrolyte response to other medications Evidence-based beta-dunia will be started with metoprolol succinate 25 mg p.o. every morning and uptitrated Will need to be started on Entresto prior to discharge We will change lisinopril to losartan given the greater benefit in LV systolic heart failure Follow and replete electrolytes very closely STRICT I/O's AND DAILY WEIGHTS ON SAME STANDING SCALE will need cardiac catheterization to evaluate for possible obstructive CAD will also allow to evaluate aortic valve gradients and right sided pressures unable to perform at this time due to significant orthopnea, likely schedule for Saturday 11/11 to determine possible underlying etiologies of NICM will need to check: lyme HIV (pt agreeable to testing) fat pad biopsy (amyloidosis) outpatient cardiac MRI (specifically evaluating for granulomatous disease given family heritage of [place] descent) outpatient genetic testing I had a lengthy discussion with the patient in regards to the above. He states he understands and is accepting of continued inpatient hospitalization along with above testing and treatment plan. Admission and Anticipated Discharge Date Admission Date: November 06, 2021 Subjective Patient seen and examined. Chart reviewed. Telemetry reviewed. Patient states that he does not feel much different since admission. Still with significant orthopnea, abdominal distention and lower extremity edema. Review of Systems Review of Systems: All systems reviewed & are unremarkable except as noted in HPI & below Physical Exam Physical Exam: General: Awake, alert and oriented x 3. Mild conversational dyspnea HEENT: Normocephalic, atraumatic. Pupils equal, round and reactive to light and accommodation. Extraocular muscles are intact. Anicteric sclera. Moist mucous membranes. Neck: JVD to the mandible. No bruit. Positive fluid wave with HJR Cardiovascular: Regular. Positive S-4. Normal S-1 and S-2. Possible S-3. 3/6 holosystolic ejection murmur, left sternal border, mid-clavicular line with radiation to the axilla. No rubs. Pulmonary: Poor air movement in the bilateral bases with rales. no rhonchi or wheezing Abdomen: Protuberant and significantly distended abdomen. Mild tenderness to palpation. Extremities: No clubbing, cyanosis. +2 B/L pitting edema to above the knee. +1 pedal pulses bilaterally. Skin: Warm and dry. Results & Data ([facility]) Vital Signs (Past 12 Hours) Vital Signs Temp Pulse Pulse Pulse Resp BP BP 11/08/21 09:10 84 11/08/21 08:52 11/08/21 08:00 36.9 C 88 20 98/63 L 11/08/21 08:24 88/51 L 11/08/21 03:02 37.0 C 92 H 18 93/65 L 11/07/21 23:00 86 11/07/21 21:25 11/07/21 23:26 36.8 C 87 24 90/58 L Pulse Ox O2 Del Method O2 Flow Rate 11/08/21 09:10 11/08/21 08:52 Nasal Cannula 2 11/08/21 08:00 99 Room Air 11/08/21 08:24 11/08/21 03:02 97 Nasal Cannula 2 11/07/21 23:00 11/07/21 21:25 Nasal Cannula 2 11/07/21 23:26 98 Room Air, Nasal Cannula 2 (1) DM type 2 (diabetes mellitus, type 2) 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
[2021-11-08] MEDS: METOPROLOL SUCC 25MG EXT REL TAB PO SCH (09:30)
--- NOTE | 2021-11-08 11:23 | Electrocardiogram Report ---
Test Reason : Blood Pressure : / mmHG Vent. Rate : 093 BPM Atrial Rate : 093 BPM P-R Int : 192 ms QRS Dur : 096 ms QT Int : 404 ms P-R-T Axes : 050 090 -43 degrees QTc Int : 502 ms Normal sinus rhythm Rightward axis Pulmonary disease pattern Possible Old Septal infarct Diffuse Nonspecific T wave abnormality Abnormal ECG When compared with ECG of 06-NOV-2021 16:19, No significant change was found Confirmed by Brandon Desouza ([id number]) on 11/08/2021 11:23:36 AM Referred By: [facility] Confirmed By:Brandon Desouza
[2021-11-08] MEDS: BUMETANIDE 1 MG in SYRINGE 0 ML IV SCH (13:43)
[2021-11-08] MEDS ORDERED: CALCIUM CARBONATE 500 MG CHEWABLE TAB PO PRN (13:48)
[2021-11-08] MEDS ORDERED: ALUMINUM/MAGNESIUM SUSP 30 ML UDC PO STA (13:48)
[2021-11-08] MEDS ORDERED: ALUMINUM/MAGNESIUM SUSP 30 ML UDC PO PRN (13:49)
--- NOTE | 2021-11-08 14:03 | Communication Note ---
Date of Service: November 08, 2021 Given difficutly with diuresis due to hypotension, will ask our GI colleagues to evaluate for therapeutic paracentesis so that we may be able to proceed with cardiac cath.
--- NOTE | 2021-11-08 16:12 | Ultrasound Report ---
PARACENTESIS UNDER ULTRASOUND GUIDANCE CLINICAL HISTORY: Abdominal distention. Ascites. COMPARISON STUDY: No priors. PROCEDURE: The risks, benefits, and alternatives to the procedure were discussed with the patient who voiced understanding. Written informed consent was obtained. Following real-time ultrasound localiza tion of a suitable pocket of fluid in the left lower quadrant, the abdomen was prepped and draped in the usual sterile fashion. The skin and soft tissues were anesthetized with 1% lidocaine. The sheathe d paracentesis needle was inserted and approximately 2.5 liters of dark ascitic fluid was removed by vacuum suction. A sample was sent for laboratory analysis. The procedure was well tolerated and witho ut immediate complication. The patient left the department in satisfactory condition. IMPRESSION: Successful ultrasound-guided paracentesis with removal of approximately 2.5 liters of asc itic fluid. ACT 112: Negative or not required by law. Electronically signed by: Herbert Gallegos M.D. 11/08/2021 4:11 PM
--- NOTE | 2021-11-08 16:21 | Consultation Report ---
NEPHROLOGY CONSULTATION NOTE DATE OF SERVICE: 11/08/2021. REASON FOR CONSULTATION: Acute renal failure. HISTORY OF PRESENT ILLNESS: The patient is a 61-year-old male who was admitted 2 days ago with very abnormal echocardiogram suggesting severe cardiomyopathy. The patient was having progressively worsening lower extremity edema and abdominal distention for the last 6 months. He was getting Lasix 20 mg twice daily as an outpatient. The patient does not have health insurance and he is getting health care through [facility]. After the outpatient echo showed severe dilatation of all 4 cardiac chambers with an ejection fraction of less than 20%, severe aortic stenosis as well as multiple valvular problem, he was directed to be admitted in the hospital. He has received IV Bumex. He made about 1600 mL of urine yesterday. He feels slightly better than yesterday, but still has significant abdominal distention and shortness of breath. Creatinine on admission was 1.1, this morning is up a little bit to 1.4. He does not have any prior renal history, but he does have diabetes for which he takes Trulicity. We do not know for sure how long he has had diabetes. ALLERGIES: List reviewed. MEDICATIONS: Home medication list includes Trulicity, Lasix 20 twice daily, insulin 22 units every morning, lisinopril 20 daily, metformin 1000 twice daily, multivitamin daily, omega-3 fatty acid. PAST MEDICAL AND SURGICAL HISTORY: Includes type 2 diabetes requiring insulin of unknown duration, history of fatty liver, hypertension, nasal septoplasty, history of tonsillectomy. FAMILY HISTORY: Mother with diabetes. Father with heart disease. SOCIAL HISTORY: Current everyday smoking. Frequent alcohol and in the past he used to be a heavy drinker. He is and lives with his spouse. Does not have health insurance. REVIEW OF SYSTEMS: Positive for orthopnea, increasing shortness of breath, lower extremity edema, abdominal distention. Otherwise, 12 systems reviewed and negative. Denied nausea, vomiting, loss of appetite. PHYSICAL EXAMINATION: GENERAL: A middle-aged white male who is awake, alert and oriented x3. Despite his severe cardiac status, he actually does not appear to be in any respiratory distress on rest. VITAL SIGNS: Blood pressure is low. Most recent blood pressure 91/65, pulse rate 88, temperature 36.8, pulse rate 88, 99% on room air. HEENT: Mucous membrane moist. NECK: Supple. No jugular venous distention is present. CHEST: Bilateral decreased breath sounds. CARDIOVASCULAR: S1 and S2, regular. Systolic murmur heard. Heart sounds distant. ABDOMEN: Distended with ascites present. EXTREMITIES: Show 2+ edema. NEUROLOGIC: He is awake, alert and oriented. Normal speech. Able to walk around the bed. Normal speech. No focal deficit. LABORATORY TEST: Chest x-ray: Cardiomegaly with pulmonary edema. Creatinine 1.41, BUN 43. Sodium 134, potassium 4.0, chloride 100, bicarbonate 24, calcium 9.2, magnesium 2.2. ASSESSMENT AND PLAN: A 61-year-old male with no regular health insurance, but who was getting health care through [facility] now admitted with advanced decompensated cardiac problem. I have been consulted for acute renal failure. Acute renal failure, on admission creatinine was 1.1, but now with attempts at diuresis and ongoing hypotension, Creatinine has gone up slightly to 1.4. His blood pressure is still quite low, which will make diuresis quite difficult as well as starting multiple cardiac medication. He has advanced cardiomyopathy with an ejection fraction of less than 20%, as well as severe aortic stenosis and multiple valvular heart disease. All of these are very difficult to manage. On top of that, he has also had diabetes of unknown duration, but I do not believe diabetes is the primary cause here, but it obviously does not help. We can do a urine protein to creatinine ratio to assess for diabetic nephropathy, but this is not that critical. The primary management is optimizing cardiac status and blood pressure. If we are able to do that, I expect the kidney function to be somewhat better. Otherwise, we may have ongoing worsening. We will defer diuretics management to Cardiology. However, for the time being given low blood pressure, I do not think we are at the stage to start Entresto and spironolactone. Lasix drip can also be considered, but we will defer to Cardiology colleague. I agree with doing abdominal paracentesis to help with the current situation of decompensated heart failure. Thank you very much for the consult. I will continue to follow. Job ID: [id number] [facility]
[2021-11-08] MEDS ORDERED: SODIUM CHLORIDE 0.9% 1000ML 500 ML IV ONE (16:45)
[2021-11-08 17:01] LABS: Albumin Peritoneal Fluid 2.1 gm/dl; Total Protein Peritoneal Fluid 3.3 gm/dl
--- NOTE | 2021-11-08 17:23 | Hospitalist Progress Note ---
Date of Service November 08, 2021 Assessment & Plan (1) Acute systolic CHF (congestive heart failure): Plan 61 yo M w/ PMH of alc abuse hx (6 drinks every 2 d; now occasional use since last 3 years), T2DM, Snoring/daytime somnolence, HTN, Fatty liver, Lumbar disc herniation presented to our ED at referral of cardiology office for newly diagnosed HF w/ EF of 20% and cardiomyopathy eval. is being managed for the following: Acute systolic CHF Patient sent to ED 11/06 for evaluation [see above]. Patient reports ongoing shortness of breath since last 6 months with progressive BLE swelling and some dry cough likely related to pulmonary edema. Patient denies chest pain with exertion. Patient does have cardiac history and multiple family members [see H&P] Admitting CXR with cardiomegaly and pulmonary congestion, admitting BNP elevated. Tropes minimally elevated at presentation and patient with no chest pain. Admitting EKG with no acute ST or T changes. 11/06/2021 outpatient echo: Severe dilatation of all cardiac chambers, EF less than 20%. Continue telemetry, monitor and replete electrolytes as appropriate. Cardiology on board: Being optimized for GDMT. Outpatient cardiac MRI [to evaluate for granulomatous disease], fat pad biopsy likely OP, outpatient genetic testing, Lyme and HIV test. Entresto possibly prior to discharge, prior Auth will be needed. Cardiac cath likely on Thursday for possible obstructive CAD evaluation. Strict I's and O's, daily weights. Abdominal distention Likely congestive hepatopathy Diagnostic/therapeutic paracentesis with 2.5 L removal of ascitic fluid on 11/08, follow-up with ascitic fluid studies. STERLING: Creatinine of 1.41 on 11/08 likely secondary to aggressive diuresis for acute CHF and ensuing hypotension, nephrology on board, BMP in a.m., appreciate recommendation. Other chronic medical conditions: HTN, DM type II --> continue/resume home meds as and when able. A1c 6.4. DVT prophylaxis: SQ heparin Full code Admission and Anticipated Discharge Date Admission Date: November 06, 2021 Subjective Patient seen and examined at bedside for follow-up of acute systolic heart failure. Patient was lying semiupright in bed, on room air, NAD, denies new acute events overnight, denies headache/chest pain/palpitations/belly pain/sore throat/cough/fever/chills/other review of symptoms. Patient complains of occasional shortness of breath and dizziness, likely orthostasis secondary to aggressive diuresis. Fall precaution. Monitor and replete electrolytes. Physical Exam Physical Exam: GENERAL: Alert and oriented x3. NAD, on RA. HEENT: No pallor, no icterus. Pupils equal, round and reactive to light. Oral mucosa moist. NECK: No JVD, no neck masses. HEART: S1 and S2 heard. Regular rate and rhythm. Systolic murmur at Pulmonic greater than aortic area, no gallop. RESPIRATORY SYSTEM: Normal AP diameter. No accessory muscle use. No wheezing, ? b/b crackles. ABDOMEN: Soft, bowel sounds present, nontender, + distention (approx baseline per Pt). CENTRAL NERVOUS SYSTEM: No facial droop. Speech is clear. Obeys simple com mands. Moves extremities. EXTREMITIES: 2+ BLE edema, trace b/l thigh edema, no erythema seen. Results & Data Results & Data ([facility]) Vital Signs (Past 12 Hours) Vital Signs Temp Pulse Pulse Resp BP BP Pulse Ox 11/08/21 16:07 97 11/08/21 16:06 36.9 C 101 H 20 80/56 L 11/08/21 14:10 99 H 11/08/21 12:00 36.8 C 88 20 91/65 L 99 11/08/21 11:44 86/62 L 11/08/21 10:46 92/63 L 79/56 L 11/08/21 09:22 91/61 L 11/08/21 09:10 84 11/08/21 08:52 11/08/21 08:00 36.9 C 88 20 98/63 L 99 11/08/21 08:24 88/51 L O2 Del Method O2 Flow Rate 11/08/21 16:07 Nasal Cannula 2 11/08/21 16:06 11/08/21 14:10 11/08/21 12:00 Room Air 11/08/21 11:44 11/08/21 10:46 11/08/21 09:22 11/08/21 09:10 11/08/21 08:52 Nasal Cannula 2 11/08/21 08:00 Room Air 11/08/21 08:24
[2021-11-08 18:42] LABS: Appearance Peritoneal Fluid Hazy; Color Peritoneal Fluid Amber; Lymphocytes, Fluid 72 %; Mono,Macrophage,Mesothelial 26 %; Neutrophils, Fluid 2 %; RBC Peritoneal Fluid (A) 10000 /uL; WBC Peritoneal Fluid (A) 826 /ul (0-300)
[2021-11-09] MEDS: HEPARIN SOD 5,000 UNIT/0.5 ML VIAL SQ SCH ×3 (05:49→21:24)
[2021-11-09 06:56] LABS: Hemoglobin 10.8 g/dl (14.0-18.0); Mean Platelet Volume 11.6 fL (9.4-12.4); Platelet Count 115 K/uL (130-400); White Blood Count 4.51 K/ul (4.8-10.8)
[2021-11-09 07:22] LABS: BUN Creatinine Ratio 38.8 (10-20); Calcium 8.7 mg/dl (8.5-10.1); Creatinine Clr Calc Pharmacy 73.4 ml/min; Est GFR (African American) 69.4 ml/min; Est GFR (Non-African American) 59.9 ml/min; Magnesium 2.2 mg/dl (1.7-2.4); Partial Thromboplastin Time 28.5 Seconds (21.0-31.0); Phosphorus 4.3 mg/dl (2.5-4.9); Potassium 4.1 mmol/L (3.5-5.1)
[2021-11-09 07:35] LABS: Mean Corpuscular Hemoglobin 32.3 pg (25.0-34.0); Mean Corpuscular Hgb Conc 33.8 g/dL (32.0-36.0); Mean Corpuscular Volume 95.8 fL (80.0-100.0); RDW Coefficient of Variation 14.7 % (11.5-14.5); RDW Standard Deviation 51.5 fL (36.4-46.3); Red Blood Count 3.34 M/uL (4.63-6.08)
[2021-11-09] MEDS: INSULIN ASPART PER UNIT SC SCH ×4 (08:14→20:48)
[2021-11-09] MEDS: POTASSIUM CHLORIDE CRTAB 20 MEQ TABCR PO SCH (08:39)
[2021-11-09] MEDS: METOPROLOL SUCC 25MG EXT REL TAB PO SCH (08:46)
--- NOTE | 2021-11-09 10:30 | Cardiology Progress Note ---
Date of Service November 09, 2021 Assessment & Plan (1) Dilated cardiomyopathy: (2) Biventricular failure: (3) Mitral regurgitation: (4) Aortic stenosis: (5) DM type 2 (diabetes mellitus, type 2): (6) HTN (hypertension): (7) Acute systolic CHF (congestive heart failure): (8) Restrictive cardiomyopathy: Plan 61-year-old male presents with greater than 6 months of progressive edema, dyspnea on exertion and orthopnea. Echocardiogram performed yesterday at [facility] shows severe dilated cardiomyopathy with EF less than 20% along with likely secondary mitral regurgitation, possible severe aortic stenosis, moderate tricuspid regurgitation, pulmonary hypertension and severe biatrial enlargement unable to diurese with significant hypotension s/p paracentesis [id number] gradient of 2 g/dl, consistent with portal hypertension due to passive congestion from heart failure BUN to creat ratio of 39, suggesting intravascular volume depletion will hold diuretics for now renal function improved will benefit from aldosterone antagonism with spironolactone as well but will hold for now and follow hemodynamic and electrolyte response to other medications Evidence-based beta-dunia will be started with metoprolol succinate 25 mg p.o. every morning and uptitrated Will need to be started on Entresto prior to discharge but given lack of insurance coverage, cost may be a barrier so, will start digoxin now Follow and replete electrolytes very closely STRICT I/O's AND DAILY WEIGHTS ON SAME STANDING SCALE will need cardiac catheterization to evaluate for possible obstructive CAD will also allow to evaluate aortic valve gradients and right sided pressures unable to perform at this time due to significant orthopnea, likely schedule for Saturday 11/11 high likelihood of significant multivessel disease along with severe that will ultimately require surgical intervention to determine possible underlying etiologies of NICM will need to check: lyme-IgG negative HIV-pending The following will be performed if cardiac catheterization is unrevealing: fat pad biopsy (amyloidosis) outpatient cardiac MRI (specifically evaluating for granulomatous disease given family heritage of [place] descent) outpatient genetic testing I had a lengthy discussion with the patient in regards to the above. He states he understands and is accepting of continued inpatient hospitalization along with above testing and treatment plan. Admission and Anticipated Discharge Date Admission Date: November 06, 2021 Subjective Patient seen and examined. Chart reviewed. Telemetry reviewed. States he is feeling much better status post paracentesis. Was able to lay much flatter last evening. No further chest discomfort or shortness of breath. Review of Systems Review of Systems: All systems reviewed & are unremarkable except as noted in HPI & below Physical Exam Physical Exam: General: Awake, alert and oriented x 3. Mild conversational dyspnea HEENT: Normocephalic, atraumatic. Pupils equal, round and reactive to light and accommodation. Extraocular muscles are intact. Anicteric sclera. Moist mucous membranes. Neck: JVD to the mandible. No bruit. Positive fluid wave with HJR Cardiovascular: Regular. Positive S-4. Normal S-1 and S-2. Possible S-3. 3/6 holosystolic ejection murmur, left sternal border, mid-clavicular line with radiation to the axilla. No rubs. Pulmonary: Poor air movement in the bilateral bases with rales. no rhonchi or wheezing Abdomen: Protuberant and significantly distended abdomen. Mild tenderness to palpation. Extremities: No clubbing, cyanosis. +2 B/L pitting edema to above the knee. +1 pedal pulses bilaterally. Skin: Warm and dry. Results & Data ([facility]) Vital Signs (Past 12 Hours) Vital Signs Temp Pulse Pulse Resp BP Pulse Ox O2 Del Method 11/09/21 10:26 92 H 102/69 11/09/21 10:00 Room Air 11/09/21 07:28 36.6 C 82 19 96/62 L 96 Room Air 11/09/21 05:19 95 H 11/09/21 03:18 36.7 C 87 16 101/66 96 Room Air 11/08/21 23:28 36.7 C 96 H 16 85/55 L 93 Room Air (1) DM type 2 (diabetes mellitus, type 2) Diabetes mellitus care home insulin use: with terminal gauger use
[2021-11-09] MEDS ORDERED: DIGOXIN 0.125 MG TAB PO ONE (10:34)
--- NOTE | 2021-11-09 15:16 | Hospitalist Progress Note ---
Date of Service November 09, 2021 Assessment & Plan (1) Acute systolic CHF (congestive heart failure): Plan 61 yo M w/ PMH of alc abuse hx (6 drinks every 2 d; now occasional use since last 3 years), T2DM, Snoring/daytime somnolence, HTN, Fatty liver, Lumbar disc herniation presented to our ED at referral of cardiology office for newly diagnosed HF w/ EF of 20% and cardiomyopathy eval. is being managed for the following: Acute systolic CHF Patient sent to ED 11/06 for evaluation [see above]. Patient reports ongoing shortness of breath since last 6 months with progressive BLE swelling and some dry cough likely related to pulmonary edema. Patient denies chest pain with exertion. Patient does have cardiac history and multiple family members [see H&P] Admitting CXR with cardiomegaly and pulmonary congestion, admitting BNP elevated. Tropes minimally elevated at presentation and patient with no chest pain. Admitting EKG with no acute ST or T changes. 11/06/2021 outpatient echo: Severe dilatation of all cardiac chambers, EF less than 20%. Continue telemetry, monitor and replete electrolytes as appropriate. Cardiology on board: Being optimized for GDMT. Outpatient cardiac MRI [to evaluate for granulomatous disease], fat pad biopsy likely OP, outpatient genetic testing, Lyme and HIV test. Entresto possibly prior to discharge, prior Auth will be needed. Cardiac cath likely on Thursday for possible obstructive CAD evaluation. Strict I's and O's, daily weights. Abdominal distention Likely congestive hepatopathy Diagnostic/therapeutic paracentesis 11/08 with 2.5 L removal of ascitic fluid on 11/08, follow-up with ascitic fluid studies --> fluid analysis with elevated WBC but minimal neutrophils, given patient has no fever or abdominal pain, doubt there is SBP. Will monitor off antibiotic. Gram stain is negative. Follow final culture. Patient reports feeling better and with no occasional shortness of breath after paracentesis STERLING: Creatinine of 1.41 on 11/08 likely secondary to aggressive diuresis for acute CHF and ensuing hypotension, improving. BMP in AM. Other chronic medical conditions: HTN, DM type II --> continue/resume home meds as and when able. A1c 6.4. DVT prophylaxis: SQ heparin Full code Admission and Anticipated Discharge Date Admission Date: November 06, 2021 Subjective Patient seen and examined at bedside for follow-up of acute systolic heart failure. Patient was ambulating in room, on room air, NAD, denies new acute events overnight, reports improvement w/ sob after paracentesis, denies headache/chest pain/palpitations/belly pain/sore throat/cough/fever/chills/other review of symptoms. Physical Exam Physical Exam: GENERAL: Alert and oriented x3. NAD, on RA. HEENT: No pallor, no icterus. Pupils equal, round and reactive to light. Oral mucosa moist. NECK: No JVD, no neck masses. HEART: S1 and S2 heard. Regular rate and rhythm. Systolic murmur at Pulmonic greater than aortic area, no gallop. RESPIRATORY SYSTEM: Normal AP diameter. No accessory muscle use. No wheezing, ? b/b crackles. ABDOMEN: Soft, bowel sounds present, nontender, + distention (approx baseline per Pt). CENTRAL NERVOUS SYSTEM: No facial droop. Speech is clear. Obeys simple commands. Moves extremities. EXTREMITIES: 2+ BLE edema, no erythema seen. Results & Data Results & Data ([facility]) Vital Signs (Past 12 Hours) Vital Signs Temp Pulse Pulse Pulse Resp BP BP 11/09/21 11:20 86 11/09/21 11:16 36.5 C 86 20 93/62 L 94/62 L 11/09/21 06:00 83 11/09/21 10:26 92 H 102/69 11/09/21 10:00 11/09/21 07:28 36.6 C 82 19 96/62 L 11/09/21 05:19 95 H 11/09/21 03:18 36.7 C 87 16 101/66 Pulse Ox O2 Del Method 11/09/21 11:20 11/09/21 11:16 96 Room Air 11/09/21 06:00 11/09/21 10:26 11/09/21 10:00 Room Air 11/09/21 07:28 96 Room Air 11/09/21 05:19 11/09/21 03:18 96 Room Air
[2021-11-09] MEDS: DIGOXIN 0.125 MG TAB PO SCH (17:32)
--- NOTE | 2021-11-09 17:32 | Nephrology Progress Note ---
Date of Service November 09, 2021 Assessment & Plan (1) Acute kidney injury: Plan: A 61-year-old male with no regular health insurance, who was getting health care through [facility], admitted with advanced decompensated cardiac problem and congestive hepatopathy.Nephrology consulted for acute renal failure. -Acute renal failure, - On admission creatinine was 1.1, but with attempts at diuresis and ongoing hypotension, creatinine climbed to 1.4. His blood pressure is still quite low, which will make diuresis quite difficult as well as starting multiple cardiac medication. He has advanced cardiomyopathy with an ejection fraction of less than 20%, as well as severe aortic stenosis and multiple valvular heart disease. On top of that, he has also had diabetes of unknown duration, but I do not believe diabetes is the primary cause here, We can do a urine protein to creatinine ratio to assess for diabetic nephropathy, but this is not that critical. The primary management is optimizing cardiac status and blood pressure. If we are able to do that, I expect the kidney function to be somewhat better. - Defer diuretics management to Cardiology. --His renal functions has improved, although his UOP has tailed off. - He may need dialysis but will be a poor candidate given his fragile cardiac status. - Main thrust should be on optimizing his cardiac and VOlume status. -Abdominal paracentesis has also helped with the fluid status (2) Dilated cardiomyopathy: (3) Acute systolic CHF (congestive heart failure): Plan: - Managed by Cardiology, not on diuretics 2/ hypotension - for cardiac cath on thursday, this may again result in decline in renal functions - Agree that he will benefit from aldosterone antagonism with spironolactone as well but on hold for now and follow hemodynamic and electrolyte response to other medications. Follow and replete electrolytes. (4) Abdominal ascites: Plan: Diagnostic/therapeutic paracentesis 11/08 with 2.5 L removal of ascitic fluid on 11/08, follow-up with ascitic fluid studies --> fluid analysis with elevated WBC but minimal neutrophils, given patient has no fever or abdominal pain, Jose De Jesus does not have SBP -[id number] gradient of 2 g/dl, consistent with portal hypertension due to passive congestion from heart failure Patient reports feeling better and with no occasional shortness of breath after paracentesis Admission and Anticipated Discharge Date Admission Date: November 06, 2021 Subjective Seen and examined for follow-up of acute systolic heart failure, STERLING and Conges tive hepatopathy Ambulating in room, on room air, denies new acute events overnight, improvement w/ sob after paracentesis. Review of Systems Review of Systems: All systems reviewed & are unremarkable except as noted in HPI & below Comfortable, no SOB Physical Exam Physical Exam: GENERAL: A middle-aged white male who is awake, alert and oriented x3.Comfortbale, with no SOB HEENT: Mucous membrane moist. NECK: Supple. No jugular venous distention is present. CHEST: Bilateral decreased breath sounds. CARDIOVASCULAR: S1 and S2, regular. Systolic murmur heard. Heart sounds distant. ABDOMEN: Distended with ascites present. EXTREMITIES: Show 2+ edema. NEUROLOGIC: He is awake, alert and oriented. Normal speech. Able to walk around the bed. Normal speech. No focal deficit. Results & Data ([facility]) Vital Signs (Past 12 Hours) Vital Signs Temp Pulse Pulse Pulse Resp BP BP 11/09/21 16:44 87 11/09/21 15:48 36.6 C 85 18 94/60 L 11/09/21 11:20 86 11/09/21 11:16 36.5 C 86 20 93/62 L 94/62 L 11/09/21 06:00 83 11/09/21 10:26 92 H 102/69 11/09/21 10:00 11/09/21 07:28 36.6 C 82 19 96/62 L Pulse Ox O2 Del Method 11/09/21 16:44 11/09/21 15:48 99 Room Air 11/09/21 11:20 11/09/21 11:16 96 Room Air 11/09/21 06:00 11/09/21 10:26 11/09/21 10:00 Room Air 11/09/21 07:28 96 Room Air Laboratory Results 11/09/21 05:46 11/09/21 05:46
[2021-11-10] MEDS: HEPARIN SOD 5,000 UNIT/0.5 ML VIAL SQ SCH ×3 (05:54→21:32)
[2021-11-10 06:31] LABS: Hematocrit (blood only) 33.9 % (40.1-51.0); Hemoglobin 11.5 g/dl (14.0-18.0); Mean Platelet Volume 11.1 fL (9.4-12.4); Platelet Count 119 K/uL (130-400); White Blood Count 4.59 K/ul (4.8-10.8)
[2021-11-10 06:52] LABS: Partial Thromboplastin Time 28.8 Seconds (21.0-31.0)
[2021-11-10 07:03] LABS: BUN Creatinine Ratio 39.8 (10-20); Creatinine Clr Calc Pharmacy 87.8 ml/min; Est GFR (Non-African American) 74.2 ml/min; Magnesium 2.5 mg/dl (1.7-2.4); Potassium 4.2 mmol/L (3.5-5.1)
[2021-11-10 07:05] LABS: Mean Corpuscular Hemoglobin 32.7 pg (25.0-34.0); Mean Corpuscular Hgb Conc 33.9 g/dL (32.0-36.0); Mean Corpuscular Volume 96.3 fL (80.0-100.0); RDW Standard Deviation 52.4 fL (36.4-46.3); Red Blood Count 3.52 M/uL (4.63-6.08)
[2021-11-10] MEDS: INSULIN ASPART PER UNIT SC SCH ×4 (07:56→20:07)
[2021-11-10] MEDS: METOPROLOL SUCC 25MG EXT REL TAB PO SCH (08:02)
--- NOTE | 2021-11-10 11:44 | Cardiology Progress Note ---
Date of Service November 10, 2021 Assessment & Plan (1) Dilated cardiomyopathy: (2) Biventricular failure: (3) Mitral regurgitation: (4) Aortic stenosis: (5) DM type 2 (diabetes mellitus, type 2): (6) HTN (hypertension): (7) Acute systolic CHF (congestive heart failure): (8) Restrictive cardiomyopathy: Plan 61-year-old male presents with greater than 6 months of progressive edema, dyspnea on exertion and orthopnea. Echocardiogram performed yesterday at [facility] shows severe dilated cardiomyopathy with EF less than 20% along with likely secondary mitral regurgitation, possible severe aortic stenosis, moderate tricuspid regurgitation, pulmonary hypertension and severe biatrial enlargement unable to diurese with significant hypotension s/p paracentesis [id number] gradient of 2 g/dl, consistent with portal hypertension due to passive congestion from heart failure BUN to creat ratio of 39, suggesting intravascular volume depletion will hold diuretics for now renal function improved will benefit from aldosterone antagonism with spironolactone as well but will hold for now and follow hemodynamic and electrolyte response to other medications Evidence-based beta-dunia will be started with metoprolol succinate 25 mg p.o. every morning and uptitrated Will need to be started on Entresto prior to discharge but given lack of insurance coverage, cost may be a barrier Continue digoxin. Vital signs have now stabilized nicely. Given worsening abdominal distention we will give 1 dose of IV Bumex x1 now along with potassium supplementation. Patient is n.p.o. for cardiac catheterization in the a.m. Follow and replete electrolytes very closely STRICT I/O's AND DAILY WEIGHTS ON SAME STANDING SCALE will need cardiac catheterization to evaluate for possible obstructive CAD will also allow to evaluate aortic valve gradients and right sided pressures unable to perform at this time due to significant orthopnea, likely schedule for Saturday 11/11 high likelihood of significant multivessel disease along with severe that will ultimately require surgical intervention to determine possible underlying etiologies of NICM will need to check: lyme-IgG negative HIV-pending The following will be performed if cardiac catheterization is unrevealing: fat pad biopsy (amyloidosis) outpatient cardiac MRI (specifically evaluating for granulomatous disease given family heritage of [place] descent) outpatient genetic testing I had a lengthy discussion with the patient in regards to the above. He states he understands and is accepting of continued inpatient hospitalization along with above testing and treatment plan. Admission and Anticipated Discharge Date Admission Date: November 06, 2021 Subjective Pt seen and examined. Chart reviewed. Telemetry reviewed. States he feels a little bit more bloated today and increased lower extremity edema from yesterday. Slightly worsening shortness of breath compared to yesterday as well. Review of Systems Review of Systems: All systems reviewed & are unremarkable except as noted in HPI & below Physical Exam Physical Exam: General: Awake, alert and oriented x 3. Mild conversational dyspnea HEENT: Normocephalic, atraumatic. Pupils equal, round and reactive to light and accommodation. Extraocular muscles are intact. Anicteric sclera. Moist mucous membranes. Neck: JVD to the mandible. No bruit. Positive fluid wave with HJR Cardiovascular: Regular. Positive S-4. Normal S-1 and S-2. Possible S-3. 3/6 holosystolic ejection murmur, left sternal border, mid-clavicular line with radiation to the axilla. No rubs. Pulmonary: Poor air movement in the bilateral bases with rales. no rhonchi or wheezing Abdomen: Protuberant and significantly distended abdomen. Mild tenderness to palpation. Extremities: No clubbing, cyanosis. +2 B/L pitting edema to above the knee. +1 pedal pulses bilaterally. Skin: Warm and dry. Results & Data ([facility]) Vital Signs (Past 12 Hours) Vital Signs Temp Pulse Pulse Pulse Resp BP BP 11/10/21 11:39 36.5 C 84 18 108/71 11/10/21 08:48 11/10/21 07:25 36.7 C 82 18 105/69 11/10/21 07:10 89 11/10/21 03:44 85 11/10/21 03:06 36.7 C 86 18 93/56 L 11/09/21 23:46 Pulse Ox O2 Del Method O2 Flow Rate 11/10/21 11:39 97 Room Air 11/10/21 08:48 Room Air 11/10/21 07:25 96 Room Air 11/10/21 07:10 11/10/21 03:44 11/10/21 03:06 96 Room Air 11/09/21 23:46 Nasal Cannula 2 (1) DM type 2 (diabetes mellitus, type 2) Diabetes mellitus tank terminal gauger insulin use: with tank terminal gauger use
--- NOTE | 2021-11-10 12:36 | Nephrology Progress Note ---
Date of Service November 10, 2021 Assessment & Plan (1) Acute kidney injury: Plan: A 61-year-old male with no regular health insurance, who was getting health care through [facility], admitted with advanced decompensated cardiac problem and congestive hepatopathy.Nephrology consulted for acute renal failure. -Acute renal failure, - On admission creatinine was 1.1, but with attempts at diuresis and ongoing hypotension, creatinine climbed to 1.4. His blood pressure is still quite low, which will make diuresis quite difficult as well as starting multiple cardiac medication. He has advanced cardiomyopathy with an ejection fraction of less than 20%, as well as severe aortic stenosis and multiple valvular heart disease. On top of that, he has also had diabetes of unknown duration, but I do not believe diabetes is the primary cause here, We can do a urine protein to creatinine ratio to assess for diabetic nephropathy, but this is not that critical. The primary management is optimizing cardiac status and blood pressure. If we are able to do that, I expect the kidney function to be somewhat better. - Defer diuretics management to Cardiology. --His renal functions has improved, although his pedal edema has gone worse, but he is still voiding( not recorded)He will need to be started on diuretic soon. - He may need dialysis but will be a poor candidate given his fragile cardiac status. - Main thrust should be on optimizing his cardiac and Volume status. (2) Dilated cardiomyopathy: (3) Acute systolic CHF (congestive heart failure): Plan: - Managed by Cardiology, not on diuretics 2/ hypotension - for cardiac cath on thursday, this may again result in decline in renal functions - Agree that he will benefit from aldosterone antagonism with spironolactone as well but on hold for now and follow hemodynamic and electrolyte response to other medications. Follow and replete electrolytes. (4) Abdominal ascites: Plan: Diagnostic/therapeutic paracentesis 11/08 with 2.5 L removal of ascitic fluid on 11/08, follow-up with ascitic fluid studies --> fluid analysis with elevated WBC but minimal neutrophils, given patient has no fever or abdominal pain, Jose De Jesus does not have SBP -[id number] gradient of 2 g/dl, consistent with portal hypertension due to passive congestion from heart failure Patient reports feeling better and with no occasional shortness of breath after paracentesis Admission and Anticipated Discharge Date Admission Date: November 06, 2021 Subjective Pt seen and examined. Resting comfortably, Pedal edema has worsened. Review of Systems Review of Systems: Comfortable, no SOB Physical Exam Physical Exam: GENERAL: A middle-aged white male who is awake, alert and oriented x3.Comfortbale, with no SOB HEENT: Mucous membrane moist. NECK: Supple. No jugular venous distention is present. CHEST: Bilateral decreased breath sounds. CARDIOVASCULAR: S1 and S2, regular. Systolic murmur heard. Heart sounds distant. ABDOMEN: Distended with ascites present. EXTREMITIES: Show 2+ edema. NEUROLOGIC: He is awake, alert and oriented. Normal speech. Able to walk around the bed. Normal speech. No focal deficit. Results & Data ([facility]) Vital Signs (Past 12 Hours) Vital Signs Temp Pulse Pulse Pulse Resp BP BP 11/10/21 11:39 36.5 C 84 18 108/71 11/10/21 08:48 11/10/21 07:25 36.7 C 82 18 105/69 11/10/21 07:10 89 11/10/21 03:44 85 11/10/21 03:06 36.7 C 86 18 93/56 L Pulse Ox O2 Del Method 11/10/21 11:39 97 Room Air 11/10/21 08:48 Room Air 11/10/21 07:25 96 Room Air 11/10/21 07:10 11/10/21 03:44 11/10/21 03:06 96 Room Air Laboratory Results 11/10/21 06:20 11/10/21 06:20
[2021-11-10] MEDS ORDERED: POTASSIUM CHLORIDE CRTAB 20 MEQ TABCR PO STA (13:08)
[2021-11-10] MEDS ORDERED: BUMETANIDE 1 MG in SYRINGE 0 ML IV ONE (13:15)
--- NOTE | 2021-11-10 14:28 | Hospitalist Progress Note ---
Date of Service November 10, 2021 Assessment & Plan (1) Acute systolic CHF (congestive heart failure): Plan 61 yo M w/ PMH of alc abuse hx (6 drinks every 2 d; now occasional use since last 3 years), T2DM, Snoring/daytime somnolence, HTN, Fatty liver, Lumbar disc herniation presented to our ED at referral of cardiology office for newly diagnosed HF w/ EF of 20% and cardiomyopathy eval. is being managed for the following: Acute systolic CHF Patient sent to ED 11/06 for evaluation [see above]. Patient reports ongoing shortness of breath since last 6 months with progressive BLE swelling and some dry cough likely related to pulmonary edema. Patient denies chest pain with exertion. Patient does have cardiac history and multiple family members [see H&P] Admitting CXR with cardiomegaly and pulmonary congestion, admitting BNP elevated. Tropes minimally elevated at presentation and patient with no chest pain. Admitting EKG with no acute ST or T changes. 11/06/2021 outpatient echo: Severe dilatation of all cardiac chambers, EF less than 20%. Continue telemetry, monitor and replete electrolytes as appropriate. Cardiology on board: Being optimized for GDMT. Outpatient cardiac MRI [to evaluate for granulomatous disease], fat pad biopsy likely OP, outpatient genetic testing, Lyme and HIV test. If Entresto prior to discharge, prior Auth will be needed. Cardiac cath likely yudith for possible obstructive CAD evaluation. NPO midnight. Strict I's and O's, daily weights. Abdominal distention Likely congestive hepatopathy Diagnostic/therapeutic paracentesis 11/08 with 2.5 L removal of ascitic fluid on 11/08, follow-up with ascitic fluid studies --> fluid analysis with elevated WBC but minimal neutrophils, given patient has no fever or abdominal pain, doubt there is SBP. Will monitor off antibiotic. Gram stain is negative. Follow final culture. Patient reports feeling better and with no occasional shortness of breath after paracentesis STERLING: Creatinine of 1.41 on 11/08 likely secondary to aggressive diuresis for acute CHF and ensuing hypotension, improving. BMP in AM. Other chronic medical conditions: HTN, DM type II --> continue/resume home meds as and when able. A1c 6.4. DVT prophylaxis: SQ heparin Full code Admission and Anticipated Discharge Date Admission Date: November 06, 2021 Subjective Patient seen and examined at bedside for follow-up of acute systolic heart failure. Patient was lying in bed watching TV, on room air, NAD, denies new acute events overnight, reports some worsening BLE edema, denies sob/chest pain, denies headache/chest pain/palpitations/belly pain/sore throat/cough/fever/chills/other review of symptoms. Physical Exam Physical Exam: GENERAL: Alert and oriented x3. NAD, on RA. HEENT: No pallor, no icterus. Pupils equal, round and reactive to light. Oral mucosa moist. NECK: No JVD, no neck masses. HEART: S1 and S2 heard. Regular rate and rhythm. Systolic murmur at Pulmonic greater than aortic area, no gallop. RESPIRATORY SYSTEM: Normal AP diameter. No accessory muscle use. No wheezing, ? b/b crackles. ABDOMEN: Soft, bowel sounds present, nontender, + distention (approx baseline per Pt). CENTRAL NERVOUS SYSTEM: No facial droop. Speech is clear. Obeys simple commands. Moves extremities. EXTREMITIES: 2-3+ BLE edema, trace b/l thigh edema, no erythema seen. Results & Data Results & Data ([facility]) Vital Signs (Past 12 Hours) Vital Signs Temp Pulse Pulse Pulse Resp BP BP 11/10/21 13:46 111/77 11/10/21 11:39 36.5 C 84 18 108/71 11/10/21 08:48 11/10/21 07:25 36.7 C 82 18 105/69 11/10/21 07:10 89 11/10/21 03:44 85 11/10/21 03:06 36.7 C 86 18 93/56 L Pulse Ox O2 Del Method 11/10/21 13:46 11/10/21 11:39 97 Room Air 11/10/21 08:48 Room Air 11/10/21 07:25 96 Room Air 11/10/21 07:10 11/10/21 03:44 11/10/21 03:06 96 Room Air
[2021-11-10] MEDS: DIGOXIN 0.125 MG TAB PO SCH (17:24)
--- NOTE | 2021-11-10 19:50 | Electrocardiogram Report ---
Test Reason : Blood Pressure : / mmHG Vent. Rate : 085 BPM Atrial Rate : 085 BPM P-R Int : 194 ms QRS Dur : 094 ms QT Int : 402 ms P-R-T Axes : 051 121 -55 degrees QTc Int : 478 ms Sinus rhythm with Fusion complexes Right axis deviation Low voltage QRS Cannot rule out Anterior infarct , age undetermined Abnormal ECG When compared with ECG of 08-NOV-2021 10:03, Fusion complexes are now Present Confirmed by Soren Chang ([id number]) on 11/10/2021 7:50:09 PM Referred By: [facility] Confirmed By:Soren Chang
--- NOTE | 2021-11-10 20:44 | Electrocardiogram Report ---
Test Reason : Blood Pressure : / mmHG Vent. Rate : 088 BPM Atrial Rate : 088 BPM P-R Int : 198 ms QRS Dur : 096 ms QT Int : 406 ms P-R-T Axes : 054 124 -14 degrees QTc Int : 491 ms Normal sinus rhythm Right axis deviation Pulmonary disease pattern Septal infarct (cited on or before 06-NOV-2021) Abnormal ECG When compared with ECG of 09-NOV-2021 18:04, (unconfirmed) Fusion complexes are no longer Present Confirmed by Soren Chang ([id number]) on 11/10/2021 8:43:43 PM Referred By: [facility] Confirmed By:Soren Chang
[2021-11-11 06:06] LABS: Hematocrit (blood only) 32.8 % (40.1-51.0); Hemoglobin 11.2 g/dl (14.0-18.0); Mean Platelet Volume 11.1 fL (9.4-12.4); Platelet Count 114 K/uL (130-400); White Blood Count 4.12 K/ul (4.8-10.8)
[2021-11-11 06:25] LABS: Partial Thromboplastin Time 28.1 Seconds (21.0-31.0)
[2021-11-11] MEDS: HEPARIN SOD 5,000 UNIT/0.5 ML VIAL SQ SCH ×3 (06:32→21:06)
[2021-11-11 06:39] LABS: Mean Corpuscular Hemoglobin 32.5 pg (25.0-34.0); Mean Corpuscular Hgb Conc 34.1 g/dL (32.0-36.0); Mean Corpuscular Volume 95.1 fL (80.0-100.0); RDW Standard Deviation 52.5 fL (36.4-46.3); Red Blood Count 3.45 M/uL (4.63-6.08)
[2021-11-11 06:41] LABS: BUN Creatinine Ratio 35.4 (10-20); Calcium 8.8 mg/dl (8.5-10.1); Creatinine Clr Calc Pharmacy 98.7 ml/min; Est GFR (African American) 99.2 ml/min; Est GFR (Non-African American) 85.6 ml/min; Magnesium 2.3 mg/dl (1.7-2.4); Phosphorus 4.3 mg/dl (2.5-4.9); Potassium 4.2 mmol/L (3.5-5.1)
--- NOTE | 2021-11-11 08:10 | Nephrology Progress Note ---
Date of Service November 11, 2021 Assessment & Plan (1) Acute kidney injury: Plan: 61-year-old male with no regular health insurance, who was getting health care through [facility] clinic, admitted with advanced decompensated heart failure and congestive hepatopathy.Nephrology consulted for acute renal failure. - On admission creatinine was 1.1, but with attempts at diuresis and ongoing hypotension, creatinine climbed to 1.4. His blood pressure is still quite low, which will make diuresis quite difficult as well as starting multiple cardiac medications. He has advanced cardiomyopathy with an ejection fraction of less than 20%, as well as severe aortic stenosis and multiple valvular heart disease. On top of that, he has also had diabetes of unknown duration; not likely that diabetes is the primary cause here of renal dysfunction. We can do a urine protein to creatinine ratio to assess for diabetic nephropathy, but this is not that critical. The primary management is optimizing cardiac status and blood pressure. If we are able to do that, I expect the kidney function to be somewhat better. - Defer diuretic management to Cardiology. -His renal function has improved, although his pedal edema has worsened, but he is still voiding( not recorded). He will need to be started on diuretic soon. 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 - Main thrust should be on optimizing his cardiac and Volume status. (2) Dilated cardiomyopathy: (3) Acute systolic CHF (congestive heart failure): Plan: - Managed by Cardiology, not on diuretics 2/ hypotension - for cardiac cath on thursday, this may again result in decline in renal functions - Agree that he will benefit from aldosterone antagonism with spironolactone as well but on hold for now and follow hemodynamic and electrolyte response to other medications. Follow and replete electrolytes. (4) Abdominal ascites: Plan: Diagnostic/therapeutic paracentesis 11/08 with 2.5 L removal of ascitic fluid on 11/08, follow-up with ascitic fluid studies --> fluid analysis with elevated WBC but minimal neutrophils, given patient has no fever or abdominal pain, Jose De Jesus does not have SBP -[id number] gradient of 2 g/dl, consistent with portal hypertension due to passive congestion from heart failure Patient reports feeling better and with no occasional shortness of breath after paracentesis Admission and Anticipated Discharge Date Admission Date: November 06, 2021 Subjective seen on rounds this am 0800; for cardiac cath later today. pt wonders/worries if he needs another paracentesis; ongoing edema; breathing ok Review of Systems Review of Systems: All systems reviewed & are unremarkable except as noted in Subjective Physical Exam Constitutional: well developed (on RA) and well nourished; no acute distress Eyes: EOM intact bilaterally ENMT: Ears: no external ear abnormality Nose: no external nose abnormality Mouth: + dry oral mucous membranes Neck: no nuchal rigidity Respiratory: normal respiratory effort Auscultation: lungs clear to auscultation bilaterally and + diminished lung sounds Cardiovascular: Rate/Rhythm: regular rate and regular rhythm Heart Sounds: + murmur Extremities: + edema (2++ to hips BL) Gastrointestinal (Abdomen): Inspection/Auscultation: + abdomen distended and normal bowel sounds Percussion/Palpation: abdomen soft and + ascites; abdomen nontender Musculoskeletal: Extremities: strength 5/5 throughout Skin: no rashes, warm and dry Neurologic: vaz, fluent speech, no tremor Psychiatric: Orientation: oriented x 3 Results & Data ([facility]) Vital Signs (Past 12 Hours) Vital Signs Temp Pulse Pulse Resp BP BP Pulse Ox 11/11/21 07:48 87 11/11/21 07:32 36.7 C 81 19 104/67 96 11/11/21 04:59 86 11/11/21 03:13 36.7 C 82 16 107/70 96 11/10/21 23:23 36.8 C 83 18 106/68 96 O2 Del Method 11/11/21 07:48 11/11/21 07:32 Room Air 11/11/21 04:59 11/11/21 03:13 Room Air 11/10/21 23:23 Room Air Laboratory Results 11/11/21 05:36 11/11/21 05:36
--- NOTE | 2021-11-11 08:37 | Cardiology Progress Note ---
Date of Service November 11, 2021 Assessment & Plan (1) Dilated cardiomyopathy: (2) Biventricular failure: (3) Mitral regurgitation: (4) Aortic stenosis: (5) DM type 2 (diabetes mellitus, type 2): (6) HTN (hypertension): (7) Acute systolic CHF (congestive heart failure): (8) Restrictive cardiomyopathy: Plan The patient will have a right and left heart catheterization today to evaluate him for ischemic heart disease as well as aortic stenosis although he may require a dobutamine stress to evaluate the aortic stenosis as to whether it is true aortic stenosis or pseudo aortic stenosis due to poor LV function. I explained the risk, benefit and intent of the procedure to him. We will not do a left ventriculogram because of volume. We will use contrast only for coronary angiography. We will also assess right heart pressures. Further recommendations following the above. Admission and Anticipated Discharge Date Admission Date: November 06, 2021 Subjective The patient had an uneventful night. Review of Systems Review of Systems: Review of Systems: See HPI for pertinent positives. All other 10 point review of systems are negative. Physical Exam Physical Exam: General: no acute distress and stated age Head: normocephalic, no masses, lesions, tenderness or abnormalities Eyes: conjunctiva are pink and non-injected, sclera clear Neck: supple, no adenopathy, no bruits, normal jugular venous pulse, no hepatojugular reflux Chest: normal shape and normal respiratory effort Lungs: clear to auscultation and percussion Cardiac Exam: - regular rate & rhythm, no murmurs gallops or rubs - normal S1, normal S2 Pulses: 2(+) throughout Abdomen: abdomen soft, non-tender, no abnormal masses and no hepatosplenomegaly Musculoskeletal: no gait disturbance, no joint inflammation, no deforming arthritis Extremities: no edema and no cyanosis Neuro: grossly normal exam Results & Data ([facility]) Vital Signs (Past 12 Hours) Vital Signs Temp Pulse Pulse Resp BP BP Pulse Ox 11/11/21 07:48 87 11/11/21 07:32 36.7 C 81 19 104/67 96 11/11/21 04:59 86 11/11/21 03:13 36.7 C 82 16 107/70 96 11/10/21 23:23 36.8 C 83 18 106/68 96 O2 Del Method 11/11/21 07:48 11/11/21 07:32 Room Air 11/11/21 04:59 11/11/21 03:13 Room Air 11/10/21 23:23 Room Air Laboratory Results Laboratory Results - last 24 hr 11/10/21 11/10/21 11/10/21 11:28 16:10 19:48 WBC RBC Hgb Hct MCV MCH MCHC RDW Std Deviation RDW Coeff of Carla Plt Count MPV APTT PTT Ratio Sodium Potassium Chloride Carbon Dioxide Anion Gap BUN Creatinine Est Cr Clr Drug Dosing Est GFR ( Amer) Est GFR (Non-Af Amer) BUN/Creatinine Ratio Glucose POC Glucose 139 H 111 H 129 H Calcium Phosphorus Magnesium 11/11/21 11/11/21 11/11/21 05:36 05:36 05:36 WBC 4.12 L RBC 3.45 L Hgb 11.2 L Hct 32.8 L MCV 95.1 MCH 32.5 MCHC 34.1 RDW Std Deviation 52.5 H RDW Coeff of Carla 15.0 H Plt Count 114 L MPV 11.1 APTT 28.1 PTT Ratio 1.0 Sodium 137 Potassium 4.2 Chloride 104 Carbon Dioxide 24 Anion Gap 9 BUN 34 H Creatinine 0.96 Est Cr Clr Drug Dosing 98.7 Est GFR ( Amer) 99.2 Est GFR (Non-Af Amer) 85.6 BUN/Creatinine Ratio 35.4 H Glucose 98 POC Glucose Calcium 8.8 Phosphorus 4.3 Magnesium 2.3 11/11/21 11/11/21 05:41 07:16 WBC RBC Hgb Hct MCV MCH MCHC RDW Std Deviation RDW Coeff of Carla Plt Count MPV APTT PTT Ratio Sodium Potassium Chloride Carbon Dioxide Anion Gap BUN Creatinine Est Cr Clr Drug Dosing Est GFR ( Amer) Est GFR (Non-Af Amer) BUN/Creatinine Ratio Glucose POC Glucose 118 H 105 H Calcium Phosphorus Magnesium Medications Administered Current Inpatient Medications Acetaminophen (Acetaminophen 325 Mg Tab) 650 mg PO Q4H PRN PRN Reason: Pain or Fever Stop: 12/06/21 19:48 Al Hydrox/Mg Hydrox/Simethicone (Aluminum/Magnesium Susp 30 Ml Udc) 15 ml PO Q6H PRN PRN Reason: indigestion Stop: 12/08/21 13:48 Last Admin: 11/09/21 16:22 Dose: 15 ml Calcium Carbonate (Calcium Carbonate 500 Mg Chewable Tab) 1,000 mg PO Q8H PRN PRN Reason: Indigestion Stop: 12/08/21 13:47 Dextrose (Dextrose 50% 50 Ml Syringe) 25 - 50 ml IV UD PRN; Protocol PRN Reason: Hypoglycemia Protocol Stop: 12/06/21 19:48 Digoxin (Digoxin 0.125 Mg Tab) 0.125 mg PO DAILY@1600 [facility] Stop: 12/09/21 15:59 Last Admin: 11/10/21 17:24 Dose: 0.125 mg Glucagon (Glucagon For Inj 1 Mg Vial) 1 mg SQ UD PRN; Protocol PRN Reason: Hypoglycemia Protocol Stop: 12/06/21 19:48 Glucose (Glucose 40% Gel 15 Gm Tube) 15 - 30 gm PO UD PRN; Protocol PRN Reason: Hypoglycemia Protocol Stop: 12/06/21 19:48 Glucose (Glucose 10 Tab/Tube) 4 - 8 tab PO UD PRN; Protocol PRN Reason: Hypoglycemia Treatment Stop: 12/06/21 19:48 Heparin Sodium (Porcine) (Heparin Sod 5,000 Unit/0.5 Ml Vial) 5,000 units SQ Q8 [facility] Stop: 12/06/21 21:59 Last Admin: 11/11/21 06:32 Dose: 5,000 units Bumetanide 1 mg/ Syringe 4 mls @ 4 mls/min IV BID@0900,1700 [facility] Stop: 12/07/21 16:59 Last Admin: 11/08/21 13:43 Dose: Not Given Sodium Chloride (Nss 1000ml) 1,000 mls @ 1 mls/hr IV .Q24H [facility] Stop: 12/11/21 08:44 Insulin Aspart (Insulin Aspart Per Unit) 0 units SC ACHS [facility] Stop: 12/06/21 20:59 Last Admin: 11/10/21 20:07 Dose: Not Given Ipratropium Manson (Ipratropium Manson Neb Soln 0.02% 2.5 Ml Vial) 0.5 mg INH Q4H PRN PRN Reason: Shortness Of Breath Or Wheezing Stop: 12/07/21 20:44 Levalbuterol HCl (Levalbuterol 1.25mg/0.5ml Neb) 1.25 mg INH Q4H PRN PRN Reason: Shortness Of Breath Or Wheezing Stop: 12/07/21 20:44 Metoprolol Succinate (Metoprolol Succ 25mg Ext Rel Tab) 25 mg PO QAM [facility] Stop: 12/07/21 08:59 Last Admin: 11/10/21 08:02 Dose: 25 mg Miscellaneous (Carbohydrates For Hypoglycemia ) 15 - 30 gm PO UD PRN PRN Reason: Hypoglycemia Protocol Stop: 12/06/21 19:48 (1) DM type 2 (diabetes mellitus, type 2) Diabetes mellitus half-way insulin 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
[2021-11-11] MEDS: INSULIN ASPART PER UNIT SC SCH ×4 (09:08→21:07)
[2021-11-11] MEDS ORDERED: fentaNYL citrate 100 MCG/2 ML VIAL ONE (10:39)
[2021-11-11] MEDS ORDERED: MIDAZOLAM HCL 1 MG/ML 2ML VIAL ONE (10:39)
[2021-11-11] MEDS ORDERED: HEPARIN (PORCINE) 1000 UNIT/ML 10 ML (CATH LAB USE ONLY) ONE (10:39)
[2021-11-11] MEDS ORDERED: niCARdipine HCL INJ 2.5 MG/ML 10 ML AMP ONE (10:39)
[2021-11-11] MEDS ORDERED: NITROGLYCERIN/D5W 100MCG/ML 20ML SYR ONE (10:40)
--- NOTE | 2021-11-11 11:41 | Cardiac Catheterization ---
Date of Service November 11, 2021 Cardiac Cath Report Cardiac Cath Report Procedure: 1. Coronary angiography 2. Left heart catheterization 3. Right heart catheterization History: This is a 61-year-old male patient who presented with heart failure due to a newly discovered dilated cardiomyopathy with questionable aortic stenosis. Procedure summary: After informed consent was obtained Access was obtained utilizing a retrograde Salinger technique from the right femoral artery and vein. A 6 Romanian Ozark-Daysi catheter was utilized for the right heart pressures and cardiac outputs. A 5 Romanian pigtail catheter was utilized to cross the aortic valve and measure left heart pressures and gradients across the valve. Preformed 5 Romanian diagnostic catheters were utilized for the coronary angiograms. Following the procedure the arterial site was closed with a minx device and the patient was returned to the holding area the Community Support Worker in stable condition. Hemodynamic data: PA pressure 50/35 mmHg Pulmonary capillary wedge pressure 33 mmHg LV pressure 118/29 mmHg Aortic pressure is 103/62 mmHg Cardiac output by thermal dilution is 6.27 L/min Cardiac index by thermal dilution is 2.86 L/min/m Cardiac output by Randy 7.95 L/min Cardiac index by Randy 3.62 L/min/m PA oxygen saturation 72% Ao oxygen saturation 99% Mean gradient across the aortic valve 18.76 mmHg Estimated aortic valve area is 1.5 cm Aortic valve index 0.68 cm/m IV fluid 80 cc normal saline Sedation 1 mg intravenous Versed Contrast 90 cc Visipaque Fluoroscopy time 12.7 minutes Radiation 1685 mGy DAP 194.07 Ruggiero per centimeter squared Start time 10:50 AM End time 11:29 AM Right dominant system AUC score 9 Coronary angiography: Injections into the left coronary artery revealed the left main trunk to be widely patent. Left circumflex consists mainly of a large lateral and posterolateral branch. The left circumflex system is widely patent. The LAD shows minimal calcium in the mid segment. The LAD extends all the way around the apex of the heart. The LAD gives off a large first diagonal branch which at the bifurcation is 50% narrowed. The remainder of the LAD is widely patent. Injections in the right coronary artery reveal it to be large and dominant. The right coronary artery is widely patent. Summary: The patient has mild to moderate aortic stenosis. Cardiac output by thermal dilution and Randy are normal. The patient has minor nonobstructive coronary artery disease. Recommendations: Continued work-up and management of the patient's nonischemic cardiomyopathy.
[2021-11-11] MEDS: SODIUM CHLORIDE 0.9% 1000ML 1,000 ML IV SCH (12:32)
[2021-11-11 12:44] LABS: iSTAT Arterial Blood Gas HCO3 25 meg/L (19-24); iSTAT Arterial Blood Gas pCO2 40 mmHg (35-46); iSTAT Arterial Blood Gas pH 7.39 (7.35-7.45); iSTAT Arterial Blood Gas pO2 38 mmHg (80-95); iSTAT Carbon Dioxide 26 mmol/L (24-31)
--- NOTE | 2021-11-11 13:43 | Hospitalist Progress Note ---
Date of Service November 11, 2021 Assessment & Plan (1) Acute systolic CHF (congestive heart failure): Plan 61 yo M w/ PMH of alc abuse hx (6 drinks every 2 d; now occasional use since last 3 years), T2DM, Snoring/daytime somnolence, HTN, Fatty liver, Lumbar disc herniation presented to our ED at referral of cardiology office for newly diagnosed HF w/ EF of 20% and cardiomyopathy eval. is being managed for the following: Acute systolic CHF Patient sent to ED 11/06 for evaluation [see above]. Patient reports ongoing shortness of breath since last 6 months with progressive BLE swelling and some dry cough likely related to pulmonary edema. Patient denies chest pain with exertion. Patient does have cardiac history and multiple family members [see H&P] Admitting CXR with cardiomegaly and pulmonary congestion, admitting BNP elevated. Tropes minimally elevated at presentation and patient with no chest pain. Admitting EKG with no acute ST or T changes. 11/06/2021 outpatient echo: Severe dilatation of all cardiac chambers, EF less than 20%. Continue telemetry, monitor and replete electrolytes as appropriate. Cardiology on board: Being optimized for GDMT. Outpatient cardiac MRI [to evaluate for granulomatous disease], fat pad biopsy likely OP, outpatient genetic testing, Lyme and HIV test. If Entresto prior to discharge, prior Auth will be needed. Cardiac cath 11/11/2021: Mild to moderate aortic stenosis, cardiac output by thermal dilution and Randy are normal, minor nonobstructive coronary artery disease. Strict I's and O's, daily weights. Pt back on diuresis, plan for repeat echo yudith per Cardio. D/w cardio. Abdominal distention Likely congestive hepatopathy Diagnostic/therapeutic paracentesis 11/08 with 2.5 L removal of ascitic fluid on 11/08, follow-up with ascitic fluid studies --> fluid analysis with elevated WBC but minimal neutrophils, given patient has no fever or abdominal pain, doubt there is SBP. Will monitor off antibiotic. Gram stain is negative. Follow final culture. Patient reports feeling better and with no occasional shortness of breath after paracentesis STERLING: Creatinine of 1.41 on 11/08 likely secondary to aggressive diuresis for acute CHF and ensuing hypotension, resolved. Monitor renal function and monitor and replete electrolytes. Other chronic medical conditions: HTN, DM type II --> continue/resume home meds as and when able. A1c 6.4. DVT prophylaxis: SQ heparin Full code Admission and Anticipated Discharge Date Admission Date: November 06, 2021 Subjective Patient seen and examined at bedside for follow-up of acute systolic heart failure. Patient was lying in bed, status post heart cath today, on room air, NAD, denies new acute events overnight, patient reports " feeling wonderful" and denies any more shortness of breath and reports his belly has been more comfortable after paracentesis. Denies sob/chest pain, denies headache/chest pain/palpitations/belly pain/sore throat/cough/fever/chills/other review of symptoms. Patient was insisting on going home as soon as possible, preferably today. Patient was explained that his heart failure medications are being optimized and it takes time because of acute insult his kidneys showed when we started the medication/diuresis initially, patient seemed to be unhappy and dissatisfied about it that it is taking long time. Explained the nature of medications and need for us to evaluate him clinically and his labs daily in hospital while optimizing his heart medications. Discussed with cardiology, plan to repeat echo tomorrow, patient on diuresis again, likely will try to figure out plan tomorrow. Physical Exam Physical Exam: GENERAL: Alert and oriented x3. NAD, on RA. HEENT: No pallor, no icterus. Pupils equal, round and reactive to light. Oral mucosa moist. NECK: No JVD, no neck masses. HEART: S1 and S2 heard. Regular rate and rhythm. Systolic murmur at Pulmonic greater than aortic area, no gallop. RESPIRATORY SYSTEM: Normal AP diameter. No accessory muscle use. No wheezing, ? b/b crackles. ABDOMEN: Soft, bowel sounds present, nontender, + distention ( improved and soft after paracentesis). CENTRAL NERVOUS SYSTEM: No facial droop. Speech is clear. Obeys simple commands. Moves extremities. EXTREMITIES: 1+ BLE edema, no erythema seen. Results & Data Results & Data ([facility]) Vital Signs (Past 12 Hours) Vital Signs Temp Pulse Pulse Resp BP BP Pulse Ox 11/11/21 13:23 36.7 C 83 18 112/75 98 11/11/21 13:13 90 11/11/21 12:53 36.8 C 88 18 122/77 95 11/11/21 12:38 36.7 C 85 18 115/77 97 11/11/21 12:37 36.8 C 85 18 115/77 97 11/11/21 12:20 36.7 C 88 18 109/75 98 11/11/21 12:00 65 16 114/78 98 11/11/21 11:44 65 16 112/75 98 11/11/21 09:08 84 16 116/72 98 11/11/21 07:48 87 11/11/21 07:32 36.7 C 81 19 104/67 96 11/11/21 04:59 86 11/11/21 03:13 36.7 C 82 16 107/70 96 O2 Del Method 11/11/21 13:23 Room Air 11/11/21 13:13 11/11/21 12:53 Room Air 11/11/21 12:38 Room Air 11/11/21 12:37 Room Air 11/11/21 12:20 Room Air 11/11/21 12:00 Room Air 11/11/21 11:44 Room Air 11/11/21 09:08 Room Air 11/11/21 07:48 11/11/21 07:32 Room Air 11/11/21 04:59 11/11/21 03:13 Room Air
[2021-11-11] MEDS: METOPROLOL SUCC 25MG EXT REL TAB PO SCH ×2 (15:15→16:49)
[2021-11-11] MEDS: DIGOXIN 0.125 MG TAB PO SCH (16:07)
--- NOTE | 2021-11-11 16:08 | Electrocardiogram Report ---
Test Reason : Blood Pressure : / mmHG Vent. Rate : 082 BPM Atrial Rate : 082 BPM P-R Int : 202 ms QRS Dur : 096 ms QT Int : 418 ms P-R-T Axes : 050 068 -40 degrees QTc Int : 488 ms Normal sinus rhythm Low voltage QRS Septal infarct (cited on or before 06-NOV-2021) Nonspecific T wave abnormality Abnormal ECG When compared with ECG of 10-NOV-2021 06:01, No significant change was found Confirmed by Xu Colin ([id number]) on 11/11/2021 4:08:10 PM Referred By: [facility] Confirmed By:Xu Colin
[2021-11-11] MEDS: BUMETANIDE 1 MG in SYRINGE 0 ML IV SCH (16:56)
[2021-11-12 06:02] LABS: Hematocrit (blood only) 35.1 % (40.1-51.0); Hemoglobin 11.8 g/dl (14.0-18.0); Mean Platelet Volume 11.5 fL (9.4-12.4); Platelet Count 116 K/uL (130-400); White Blood Count 4.25 K/ul (4.8-10.8)
[2021-11-12 06:20] LABS: Partial Thromboplastin Time 26.7 Seconds (21.0-31.0)
[2021-11-12 06:25] LABS: BUN Creatinine Ratio 28.6 (10-20); Calcium 8.9 mg/dl (8.5-10.1); Creatinine Clr Calc Pharmacy 90.6 ml/min; Est GFR (Non-African American) 76.8 ml/min; Magnesium 2.2 mg/dl (1.7-2.4); Potassium 4.4 mmol/L (3.5-5.1)
[2021-11-12 06:27] LABS: Mean Corpuscular Hemoglobin 32.9 pg (25.0-34.0); Mean Corpuscular Hgb Conc 33.6 g/dL (32.0-36.0); Mean Corpuscular Volume 97.8 fL (80.0-100.0); RDW Coefficient of Variation 15.1 % (11.5-14.5); RDW Standard Deviation 53.9 fL (36.4-46.3); Red Blood Count 3.59 M/uL (4.63-6.08)
[2021-11-12] MEDS: HEPARIN SOD 5,000 UNIT/0.5 ML VIAL SQ SCH (06:38)
[2021-11-12] MEDS: SODIUM CHLORIDE 0.9% 1000ML 1,000 ML IV SCH (07:47)
[2021-11-12] MEDS: METOPROLOL SUCC 25MG EXT REL TAB PO SCH (08:21)
[2021-11-12] MEDS: BUMETANIDE 1 MG in SYRINGE 0 ML IV SCH (08:21)
[2021-11-12] MEDS: INSULIN ASPART PER UNIT SC SCH (08:54)
[2021-11-12] MEDS ORDERED: lisinopril 5 MG TAB PO SCH (09:00)
[2021-11-12] MEDS ORDERED: TORSEMIDE 10 MG TAB PO SCH (09:00)
--- NOTE | 2021-11-12 09:11 | Cardiology Progress Note ---
Date of Service November 12, 2021 Assessment & Plan (1) Dilated cardiomyopathy: (2) Biventricular failure: (3) Mitral regurgitation: (4) Aortic stenosis: (5) DM type 2 (diabetes mellitus, type 2): (6) HTN (hypertension): (7) Acute systolic CHF (congestive heart failure): (8) Restrictive cardiomyopathy: Plan The patient's cardiac catheterization revealed only mild to moderate aortic stenosis. His coronary anatomy is widely patent. He does have elevated right and left heart pressures and although improved, I believe he is still volume overloaded. I find it interesting that he has high cardiac outputs both by the thermal dilution method and Randy equation with his PA sat being 72%. The patient states that he was a heavy alcohol drinker until 3 to 4 years ago. I suspect at least some of his volume overload and problems are related to cirrhosis and high output heart failure. He is anxious to be discharged from the hospital. I believe that we can manage him as an outpatient and continue to diurese him. I arranged through my clinic that he be seen as a 3-day urgent through our heart failure clinic. Consideration will be given to further work- up his liver cirrhosis. In addition, consideration needs to be given regarding an ICD implanted. I have lowered his dose of metoprolol and added lisinopril to his medical regimen. I also DC'd his IV Bumex and started him on torsemide 10 mg p.o. twice daily until his follow-up with us. He is a [facility] patient so we will have to clear everything through them. Admission and Anticipated Discharge Date Admission Date: November 06, 2021 Subjective The patient had an uneventful night. Review of Systems Review of Systems: Review of Systems: See HPI for pertinent positives. All other 10 point review of systems are negative. Physical Exam Physical Exam: General: no acute distress and stated age Head: normocephalic, no masses, lesions, tenderness or abnormalities Eyes: conjunctiva are pink and non-injected, sclera clear Neck: supple, no adenopathy, no bruits, normal jugular venous pulse, no hepatojugular reflux Chest: normal shape and normal respiratory effort Lungs: clear to auscultation and percussion Cardiac Exam: - regular rate & rhythm, no murmurs gallops or rubs - normal S1, normal S2 Pulses: 2(+) throughout Abdomen: abdomen soft, non-tender, no abnormal masses and no hepatosplenomegaly Musculoskeletal: no gait disturbance, no joint inflammation, no deforming arthritis Extremities: no edema and no cyanosis Neuro: grossly normal exam Results & Data ([facility]) Vital Signs (Past 12 Hours) Vital Signs Temp Pulse Resp BP Pulse Ox O2 Del Method 11/12/21 08:02 36.8 C 83 18 115/74 95 Room Air 11/12/21 03:43 36.8 C 84 18 94/62 L 96 Room Air 11/11/21 23:12 36.6 C 82 18 94/60 L 96 Room Air Laboratory Results Laboratory Results - last 24 hr 11/11/21 11/11/21 11/11/21 11:09 12:17 16:12 WBC RBC Hgb Hct MCV MCH MCHC RDW Std Deviation RDW Coeff of Carla Plt Count MPV APTT PTT Ratio POC pH 7.39 POC pCO2 40 POC pO2 38 L POC HCO3 25 H POC Total CO2 26 POC Base Excess 0.0 POC ABG O2 Sat 72.0 L Sodium Potassium Chloride Carbon Dioxide Anion Gap BUN Creatinine Est Cr Clr Drug Dosing Est GFR ( Amer) Est GFR (Non-Af Amer) BUN/Creatinine Ratio Glucose POC Glucose 99 125 H Calcium Magnesium 11/11/21 11/12/21 11/12/21 20:30 05:29 05:29 WBC 4.25 L RBC 3.59 L Hgb 11.8 L Hct 35.1 L MCV 97.8 MCH 32.9 MCHC 33.6 RDW Std Deviation 53.9 H RDW Coeff of Carla 15.1 H Plt Count 116 L MPV 11.5 APTT PTT Ratio POC pH POC pCO2 POC pO2 POC HCO3 POC Total CO2 POC Base Excess POC ABG O2 Sat Sodium 138 Potassium 4.4 Chloride 104 Carbon Dioxide 26 Anion Gap 8 BUN 30 H Creatinine 1.05 Est Cr Clr Drug Dosing 90.6 Est GFR ( Amer) 89.0 Est GFR (Non-Af Amer) 76.8 BUN/Creatinine Ratio 28.6 H Glucose 104 H POC Glucose 180 H Calcium 8.9 Magnesium 2.2 11/12/21 11/12/21 05:29 07:21 WBC RBC Hgb Hct MCV MCH MCHC RDW Std Deviation RDW Coeff of Carla Plt Count MPV APTT 26.7 PTT Ratio 1.0 POC pH POC pCO2 POC pO2 POC HCO3 POC Total CO2 POC Base Excess POC ABG O2 Sat Sodium Potassium Chloride Carbon Dioxide Anion Gap BUN Creatinine Est Cr Clr Drug Dosing Est GFR ( Amer) Est GFR (Non-Af Amer) BUN/Creatinine Ratio Glucose POC Glucose 119 H Calcium Magnesium Medications Administered Current Inpatient Medications Acetaminophen (Acetaminophen 325 Mg Tab) 650 mg PO Q4H PRN PRN Reason: Pain or Fever Stop: 12/06/21 19:48 Al Hydrox/Mg Hydrox/Simethicone (Aluminum/Magnesium Susp 30 Ml Udc) 15 ml PO Q6H PRN PRN Reason: indigestion Stop: 12/08/21 13:48 Last Admin: 11/09/21 16:22 Dose: 15 ml Calcium Carbonate (Calcium Carbonate 500 Mg Chewable Tab) 1,000 mg PO Q8H PRN PRN Reason: Indigestion Stop: 12/08/21 13:47 Dextrose (Dextrose 50% 50 Ml Syringe) 25 - 50 ml IV UD PRN; Protocol PRN Reason: Hypoglycemia Protocol Stop: 12/06/21 19:48 Digoxin (Digoxin 0.125 Mg Tab) 0.125 mg PO DAILY@1600 [facility] Stop: 12/09/21 15:59 Last Admin: 11/11/21 16:07 Dose: 0.125 mg Glucagon (Glucagon For Inj 1 Mg Vial) 1 mg SQ UD PRN; Protocol PRN Reason: Hypoglycemia Protocol Stop: 12/06/21 19:48 Glucose (Glucose 40% Gel 15 Gm Tube) 15 - 30 gm PO UD PRN; Protocol PRN Reason: Hypoglycemia Protocol Stop: 12/06/21 19:48 Glucose (Glucose 10 Tab/Tube) 4 - 8 tab PO UD PRN; Protocol PRN Reason: Hypoglycemia Treatment Stop: 12/06/21 19:48 Heparin Sodium (Porcine) (Heparin Sod 5,000 Unit/0.5 Ml Vial) 5,000 units SQ Q8 ARGENIS Stop: 12/06/21 21:59 Last Admin: 11/12/21 06:38 Dose: 5,000 units Insulin Aspart (Insulin Aspart Per Unit) 0 units SC ACHS ARGENSI Stop: 12/06/21 20:59 Last Admin: 11/12/21 08:54 Dose: 3 units Ipratropium [place] (Ipratropium [place] Neb Soln 0.02% 2.5 Ml Vial) 0.5 mg INH Q4H PRN PRN Reason: Shortness Of Breath Or Wheezing Stop: 12/07/21 20:44 Levalbuterol HCl (Levalbuterol 1.25mg/0.5ml Neb) 1.25 mg INH Q4H PRN PRN Reason: Shortness Of Breath Or Wheezing Stop: 12/07/21 20:44 Lisinopril (Lisinopril 5 Mg Tab) 5 mg PO QAM [facility] Stop: 12/12/21 08:59 Last Admin: 11/12/21 09:05 Dose: 5 mg Metoprolol Succinate (Metoprolol Succ 25mg Ext Rel Tab) 12.5 mg PO QAM [facility] Stop: 12/13/21 08:59 Miscellaneous (Carbohydrates For Hypoglycemia ) 15 - 30 gm PO UD PRN PRN Reason: Hypoglycemia Protocol Stop: 12/06/21 19:48 Torsemide (Torsemide 10 Mg Tab) 10 mg PO BID [facility] Stop: 12/12/21 08:59 Zinc Acetate/Diphenhydramine (Diphenhydramine 2%/Zinc 0.1% Cream 28gm Tube) 1 appln EXT QID PRN PRN Reason: itchy skin Stop: 12/12/21 00:49 (1) DM type 2 (diabetes mellitus, type 2) 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
--- NOTE | 2021-11-12 10:13 | Discharge Summary ---
Date of Service November 12, 2021 Admission HPI Per Admitting Provider 61-year-old male with PMH DM type II, HTN, tobacco abuse, fatty liver, and other problems listed below who presents the ED by referral of cardiology for evaluation after abnormal outpatient echocardiogram. Patient reports progressive worsening lower extremity edema and abdominal distention over the past 6 months. Patient was started on Lasix 20 mg twice daily and referred to cardiology. Patient had outpatient echo today that showed severe dilation of all 4 cardiac chambers, EF <20%, severe aortic stenosis vs pseudo aortic stenosis due to severe left ventricular systolic dysfunction, severe mitral regurgitation due to dilated cardiomyopathy. Patient reports shortness of breath with minimal exertion and orthopnea. Denies chest pain and palpitations. No lightheadedness, dizziness, diaphoresis, syncopal events. Denies any other recent illnesses cough, fevers, chills. Reports some occasional constipation but denies abdominal pain, nausea, vomiting, diarrhea. No urinary symptoms. In the ED, patient is hemodynamically stable. Labs show K+ 3.4, T bili 1.7, AST 49, HS troponin 25.3, proBNP 1100. CXR shows cardiomegaly with mild pulmonary edema. Patient was given Lasix 40 mg IV. Admission Exam Per Admitting Provider Constitutional: WD/WN, vitals as above Eyes: PERRL, conjunctivae normal, anicteric sclerae ENMT: external ear and nose normal, oropharynx normal Respiratory: normal respiratory effort, lungs clear to auscultation Cardiovascular: Rate/Rhythm: regular rate and regular rhythm Heart Sounds: + murmur (Grade 3/6, systolic) Vessels: normal peripheral pulses Extremities: + edema (+3 pitting edema BLE extending up to the thighs) Gastrointestinal (Abdomen): Inspection/Auscultation: + abdomen distended (Semifirm) and normal bowel sounds Percussion/Palpation: abdomen nontender and no hepatosplenomegaly Musculoskeletal: no cyanosis or clubbing, extremities motor strength 5/5 Skin: no rashes, warm and dry Neurologic: PERRL, EOMI, accommodation nl, no face palsy, no dysarthria Psychiatric: A+Ox3, euthymic affect Principal Diagnosis Acute systolic CHF Abdominal distention likely congestive hepatopathy STERLING, resolved Discharge Exam GENERAL: Alert and oriented x3. NAD, on RA. HEENT: No pallor, no icterus. Pupils equal, round and reactive to light. Oral mucosa moist. NECK: No JVD, no neck masses. HEART: S1 and S2 heard. Regular rate and rhythm. Systolic murmur at Pulmonic greater than aortic area, no gallop. RESPIRATORY SYSTEM: Normal AP diameter. No accessory muscle use. No wheezing, ? b/b crackles. ABDOMEN: Soft, bowel sounds present, nontender, + distention ( fluctuates w/ diuresis level, but better after paracentesis). CENTRAL NERVOUS SYSTEM: No facial droop. Speech is clear. Obeys simple commands. Moves extremities. EXTREMITIES: 1+ BLE edema, no erythema seen. Discharge Data Allergies Allergy/AdvReac Type Severity Reaction Status Date / Time No Known Allergies Allergy Unverified 11/06/21 17:45 Consultations 11/06/21 17:55 ED Decision to Admit Stat 11/06/21 19:49 Consult Cardiology Routine 11/08/21 09:06 Consult Nephrology Routine 11/11/21 08:30 Consult Cardiac Catheterization Routine Procedures Performed Operation Date: 11/11/21 09:30 Actual Procedures p Cineradiography w/Routine Exam - Jose Lizama DO p Cath, Right and Left Heart - Jose Lizama DO Ordered Studies 11/08/21 14:34 US paracentesis abd w/image Routine 11/11/21 07:12 CL Cath Imgs for PACS use only Routine Hospital Course (1) Acute systolic CHF (congestive heart failure): Plan 61 yo M w/ PMH of alc abuse hx (6 drinks every 2 d; now occasional use since last 3 years), T2DM, Snoring/daytime somnolence, HTN, Fatty liver, Lumbar disc herniation presented to our ED at referral of cardiology office for newly diagnosed HF w/ EF of 20% and cardiomyopathy eval. He was managed for the following: Acute systolic CHF Patient sent to ED 11/06 for evaluation [see above]. Patient reports ongoing shortness of breath since last 6 months with progressive BLE swelling and some dry cough likely related to pulmonary edema. Patient denies chest pain with exertion. Patient does have cardiac history and multiple family members [see H&P] Admitting CXR with cardiomegaly and pulmonary congestion, admitting BNP elevated. Tropes minimally elevated at presentation and patient with no chest pain. Admitting EKG with no acute ST or T changes. 11/06/2021 outpatient echo: Severe dilatation of all cardiac chambers, EF less than 20%. Discussed with cardiology, patient to follow closely with cardiology as outpatient. Appreciate the medication changes. Okay to discharge from cardiology point of view. Patient to follow-up with cardiology/PCP for outpatient cardiac MRI [to evaluate for granulomatous disease], fat pad biopsy likely OP, outpatient genetic testing, Lyme and HIV test. Cardiac cath 11/11/2021: Mild to moderate aortic stenosis, cardiac output by thermal dilution and Randy are normal, minor nonobstructive coronary artery disease. Patient to maintain heart healthy diet, take medications as prescribed, CBC, Mg and CMP in 3 days upon discharge, follow closely with cardiology as outpatient. Avoid alcohol. Patient would like to go home, reiterates that he will follow closely with cardiology for the need for ongoing optimization of his heart failure medications, Pt made aware that it is very important. Abdominal distention Likely congestive hepatopathy Diagnostic/therapeutic paracentesis 11/08 with 2.5 L removal of ascitic fluid on 11/08, follow-up with ascitic fluid studies --> fluid analysis with elevated WBC but minimal neutrophils, given patient has no fever or abdominal pain, doubt there is SBP. Will monitor off antibiotic. Gram stain is negative. Follow final culture. Patient reports feeling better and with no occasional shortness of breath after paracentesis STERLING: Creatinine of 1.41 on 11/08 likely secondary to aggressive diuresis for acute CHF and ensuing hypotension, resolved. Monitor renal function and monitor and replete electrolytes. Other chronic medical conditions: HTN, DM type II --> continue/resume home meds as and when able. A1c 6.4. Full code Patient being discharged home with following instruction at the point of discharge: Follow-up with your primary care physician within a week time. Follow-up with your heart doctor in 3 days time upon discharge. You have been diagnosed with acute systolic heart failure, cardiology evaluated you while in the hospital, your medication has been optimized for new diagnosis of heart failure. You will need to be in close follow-up with cardiology as an outpatient for continued/ongoing management/optimization of your cardiac medications. Your all medications are in the optimization process, it is very important that you maintain the follow-up with your heart doctor. Get your blood work CBC and CMP and magnesium level done in 3 days upon discharge. Call your primary care office to set up the tests. Please follow-up with cardiology/PCP for need of outpatient cardiac MRI [to evaluate for granulomatous disease], fat pad biopsy, outpatient genetic testing as part of work of for your cardiac disease process. Avoid alcohol. Take your medications as prescribed. Total Time Total Time Spent Total Time Spent (In Minutes): 40 Discharge Plan Discharge Items Patient Disposition: Home - Self-Care Reason For Visit: CHF Discharge Diagnosis: Acute systolic CHF Abdominal distention likely congestive hepatopathy STERLING, resolved Activity: Resume your previous activity Non-emergency contact: Primary Care Provider Call non-emergency contact if: you have any medication questions, your pain is worsening and your temperature is above 101.5 Follow-up/Referrals: [facility],Medicine [Primary Care Provider] - Diet: Carb Consistent or DM2 and Heart Healthy Addtl Attending Provider Instructions: Follow-up with your primary care physician within a week time. Follow-up with your heart doctor in 3 days time upon discharge. You have been diagnosed with acute systolic heart failure, cardiology evaluated you while in the hospital, your medication has been optimized for new diagnosis of heart failure. You will need to be in close follow-up with cardiology as an outpatient for continued/ongoing management/optimization of your cardiac medications. Your all medications are in the optimization process, it is very important that you maintain the follow-up with your heart doctor. Get your blood work CBC and CMP and magnesium level done in 3 days upon discharge. Call your primary care office to set up the tests. Please follow-up with cardiology/PCP for need of outpatient cardiac MRI [to evaluate for granulomatous disease], fat pad biopsy, outpatient genetic testing as part of work of for your cardiac disease process. Avoid alcohol. Take your medications as prescribed. Pending Studies at Discharge: No Stand-Alone Forms: My [facility] [employer], Smoking Cessation Medications and DC Order Prescriptions: New digoxin [Digitek] 125 mcg (0.125 mg) Tablet 125 mcg PO DAILY@1600 Qty: 30 0RF lisinopril [Zestril] 5 mg Tablet 5 mg PO QAM Qty: 30 0RF metoprolol succinate 25 mg Tablet Extended Release 24 Hr 12.5 mg PO QAM Qty: 15 0RF torsemide 10 mg Tablet 10 mg PO BID Qty: 60 0RF Continued metformin 1,000 mg Tablet 1,000 mg PO BIDM insulin glargine [Basaglar KwikPen U-100 Insulin] 100 unit/mL (3 mL) insulin pen 22 units SQ QAM multivitamin Tablet 1 tab PO DAILY [place] 3 Capsule 1,000 mg PO DAILY Trulicity 0.75 mg/0.5 mL Pen Injector 0.75 mg SUBCUT WK Discontinued lisinopril 20 mg Tablet 20 mg PO QAM furosemide 20 mg Tablet 20 mg PO BID Discharge Orders: Discharge Order (Routine); Ordered 11/12/21 Ordered By: Jd Kay/Other Patient Handouts: Managing Type 2 Diabetes Admission Data Admit Date/Time: 11/06/21 18:34 Attending Provider: Jd Duval Admit Provider: Jd Duval Primary Care Provider: [facility],Medicine Other Providers: Jd Duval ; Popeye Lemus ; Clover Bland ; Jose Lizama
[2021-11-12 14:34] LABS: iSTAT Arterial Blood Gas HCO3 23 meg/L (19-24); iSTAT Arterial Blood Gas pCO2 36 mmHg (35-46); iSTAT Arterial Blood Gas pH 7.42 (7.35-7.45); iSTAT Arterial Blood Gas pO2 122 mmHg (80-95); iSTAT Carbon Dioxide 24 mmol/L (24-31)
[2021-11-13 01:06] LABS: 18KDIGG Band NON-REACTIVE; 23KDIGG Band NON-REACTIVE; 23KDIGM Band REACTIVE; 28KDIGG Band NON-REACTIVE; 30KDIGG Band NON-REACTIVE; 39KDIGG Band REACTIVE; 39KDIGM Band NON-REACTIVE; 41KDIGG Band NON-REACTIVE; 41KDIGM Band NON-REACTIVE; 45KDIGG Band NON-REACTIVE; 58KDIGG Band REACTIVE; 66KDIGG Band NON-REACTIVE; 93KDIGG Band NON-REACTIVE; Lyme Antibodies, WB IgG NEGATIVE (NEGATIVE); Lyme Antibodies, WB IgM NEGATIVE (NEGATIVE)
[2021-11-13] MEDS ORDERED: METOPROLOL SUCC 25MG EXT REL TAB PO SCH (09:00)
== END 2021-11-12 11:20 | disposition home or self-care (01) | DRG 286 ==
LOC: ED 15:28 → 2S 18:34